=== PATIENT | male | born 1950 | race Caucasian/White ===

== ENCOUNTER 2017-05-08 11:50 | Observation (INO) | payer MEDICARE ==
[2017-05-08] VITALS (9 sets, daily range): BP systolic 126–161; BP diastolic 60–80; PULSE 74–109; RESP 14–22; TEMP 97.3–98.5; O2SAT 95–99
[~2017-05-08] VITALS: Ht 180.3 cm; Wt 56.9 kg
[~2017-05-08 11:50] MED LIST: ASPI81TA82 PO; CARV6.252 PO; CLON.1 PO; IRON27TA PO; LANTUSP SQ; MAGN400C2 PO; MYCO500T PO; NOVOLOGSS SQ; PLAV75TA PO; PROM25SU8 PO; PROT40TA PO; SIMV40TA PO; TAB-TAB PO; TACR1 PO; TORS20TA PO; VITA20003 PO
--- NOTE | 2017-05-08 12:24 | PD ---
HPI Chief Complaint: Diabetic Time Seen by Provider: 12:01 Travel History International Travel<30 days: No Contact w/Intl Traveler<30days: No Traveled to known affect area: No History of Present Illness HPI 67yo M with PMH of CAD s/p CABG, DM, renal transplant presents to the ED after neighbor found him lying down on sidewalk. When Fire arrive, he was combative and glucose was found to be 36. Pt was given D10 and repeat glucose was 130s. Pt became normal after glucose. Pt did vomit after glucose. Pt is now AAOx3 and has abrasion on right forehead, skin tears in bilateral elbows and abrasion in right shoulder/right upper back. Pt complains of some pain on top of his mouth where his denture was as well. Mild pain when the skin tears are. Pt said he felt that his blood sugar was low so he went to eat lunch early. However, he did not manage to do that and does not remember what happen after he tried to eat lunch. Denies any fever, chest pain, sob, n/v, abdominal pain, focal weakness or numbness. PFSH Past Medical History Blood Disorders: No Anxiety: No Depression: No Cancer: Yes (Melanoma) Cardiac Catheterization: Yes Cardiovascular Problems: Yes (CABG, HTN) High Cholesterol: Yes Chest Pain: No Congestive Heart Failure: Yes Cerebrovascular Accident: Yes Coronary Artery Disease: Yes Diabetes: Yes (Type 1) Diminished Hearing: Yes (NAKNEK) Endocrine: Yes Gastrointestinal Disorders: Yes GERD: Yes Glaucoma: No Genitourinary: Yes (bilateral kidney transplant) Hepatitis: No Hiatal Hernia: No Hypertension: Yes Immune Disorder: No Musculoskeletal: No Neurologic: Yes Psychiatric: No Reproductive: No Respiratory: No Integumentary: No Myocardial Infarction: Yes Renal Failure: Yes (H/O) Seizures: Yes Thyroid Disease: No PNEUMOCCOCAL Vaccine (Year): 2010 Past Surgical History Abdominal Surgery: No Cardiac Surgery: Yes (TRIPLE BYpASS IN 2003) Coronary Artery Bypass Graft: Yes (Triple) Ear Surgery: No Endocrine Surgery: No Eye Surgery: No Genitourinary Surgery: Yes (BILATERAL KIDNEY TRANSPLANT IN 2003) Gynecologic Surgery: No Neurologic Surgery: No Oral Surgery: No Pacemaker: No Thoracic Surgery: No Other Surgery: Yes (Kidney tx, toe amputations) Social History Alcohol Use: No Tobacco Use: No (Quit) Substance Use: No Allergies-Medications (Allergen,Severity, Reaction): Coded Allergies: penicillin G (Unverified Allergy, Severe, RASH, 05/08/17) Reported Meds & Prescriptions Reported Meds & Active Scripts Active Reported Torsemide 20 Mg Tab 20 Mg PO BID Tacrolimus 1 Mg Cap 1 Mg PO Q12H Mycophenolate (Mycophenolate Mofetil) 500 Mg Tab 500 Mg PO BID Simvastatin 40 Mg Tab 40 Mg PO HS Protonix (Pantoprazole Sodium) 40 Mg Tab 40 Mg PO DAILY Multi-Vitamin Daily (Multiple Vitamin) 1 Tab Tab 1 Tab PO DAILY Magnesium Oxide 400 Mg Tab 400 Mg PO DAILY Lantus Inj (Insulin Glargine) 1,000 Unit/10 Ml Vial 10 Units SQ HS Humalog Inj (Insulin Human Lispro) 1,000 Unit/10 Ml Vial 1-9 Units SQ ACHS Max dose at bedtime:( )units; sugars< 70,(0)units; sugars 150-199,(1)unit; sugars 200-249,(3)units; sugars 250-299,(5)units; sugars 300-349,(7)units; sugars more than 349,(9)units. Ferrous Gluconate 240 Mg (27 Mg Iron) Tab 240 Mg PO TID Clopidogrel (Clopidogrel Bisulfate) 75 Mg Tab 75 Mg PO DAILY Clonidine (Clonidine HCl) 0.1 Mg Tab 0.1 Mg PO BID Vitamin D3 (Cholecalciferol) 2,000 Unit Cap 2,000 Units PO DAILY Carvedilol 6.25 Mg Tab 6.25 Mg PO BID Aspirin Low Dose (Aspirin) 81 Mg Chew 81 Mg CHEW DAILY Review of Systems Except as stated in HPI: all other systems reviewed are Neg Physical Exam Narrative GENERAL: 67yo M not in distress. SKIN: Focused skin assessment warm/dry. HEAD: +Abrasion right forehead. EYES: Pupils equal and round at 3mm bilaterally. EOMI. ENT: No nasal bleeding or discharge. Mucous membranes pink and moist. NECK: No midline cervical spine ttp. CARDIOVASCULAR: Regular rate and rhythm. No murmur appreciated. RESPIRATORY: No accessory muscle use. Clear to auscultation. Breath sounds equal bilaterally. GASTROINTESTINAL: Abdomen soft, non-tender, nondistended. MUSCULOSKELETAL: Multiple skin tears in bilateral elbows. Abrasion right shoulder and scapula. FROM in all extremities. Sensation intact. Left AV fistula with positive thrill. NEUROLOGICAL: Awake and alert. No obvious cranial nerve deficits. Motor grossly within normal limits. Normal speech. PSYCHIATRIC: Appropriate mood and affect; insight and judgment normal. Data Data Last Documented VS Vital Signs Date Time Temp Pulse Resp B/P (MAP) Pulse Ox O2 Delivery O2 Flow Rate FiO2 05/08/17 16:15 94 20 135/70 (91) 98 05/08/17 14:46 Nasal Cannula 2.00 05/08/17 12:10 98.5 Orders Orders Complete Blood Count With Diff (05/08/17 11:53) Blood Glucose (05/08/17 11:53) Comprehensive Metabolic Panel (05/08/17 11:53) Iv Access Insert/Monitor (05/08/17 11:53) Electrocardiogram (05/08/17 ) Troponin I (05/08/17 12:15) Ct Brain W/O Iv Contrast(Rout) (05/08/17 ) Ct Facial Bones W/O Iv Cont (05/08/17 ) Shoulder, Limited(2vws) (05/08/17 ) Elbow, Limited (Ap&Lat) (05/08/17 ) Elbow, Limited (Ap&Lat) (05/08/17 ) Tetanus/Diphtheria Tox Adult (Tetanus/Di (05/08/17 12:30) Ondansetron Inj (Zofran Inj) (05/08/17 13:15) Diet Full Liquid (05/08/17 Lunch) Blood Glucose (05/08/17 14:09) Chest, Single Ap (05/08/17 ) Electrocardiogram (05/08/17 ) Troponin I (05/08/17 14:56) Aspirin (Aspirin) (05/08/17 15:00) Admit Order (Ed Use Only) (05/08/17 16:29) Labs Laboratory Tests Test 05/08/17 13:30 05/08/17 15:00 White Blood Count 12.7 TH/MM3 Red Blood Count 4.38 MIL/MM3 Hemoglobin 13.0 GM/DL Hematocrit 40.3 % Mean Corpuscular Volume 92.0 FL Mean Corpuscular Hemoglobin 29.7 PG Mean Corpuscular Hemoglobin Concent 32.3 % Red Cell Distribution Width 13.5 % Platelet Count 175 TH/MM3 Mean Platelet Volume 8.5 FL Neutrophils (%) (Auto) 91.3 % Lymphocytes (%) (Auto) 2.9 % Monocytes (%) (Auto) 4.6 % Eosinophils (%) (Auto) 0.8 % Basophils (%) (Auto) 0.4 % Neutrophils # (Auto) 11.5 TH/MM3 Lymphocytes # (Auto) 0.4 TH/MM3 Monocytes # (Auto) 0.6 TH/MM3 Eosinophils # (Auto) 0.1 TH/MM3 Basophils # (Auto) 0.1 TH/MM3 CBC Comment DIFF FINAL Differential Comment Blood Urea Nitrogen 66 MG/DL Creatinine 2.40 MG/DL Random Glucose 143 MG/DL Total Protein 6.8 GM/DL Albumin 3.7 GM/DL Calcium Level 9.6 MG/DL Alkaline Phosphatase 90 U/L Aspartate Amino Transf (AST/SGOT) 27 U/L Alanine Aminotransferase (ALT/SGPT) 19 U/L Total Bilirubin 0.8 MG/DL Sodium Level 141 MEQ/L Potassium Level 4.0 MEQ/L Chloride Level 106 MEQ/L Carbon Dioxide Level 25.7 MEQ/L Anion Gap 9 MEQ/L Estimat Glomerular Filtration Rate 27 ML/MIN Troponin I 0.02 NG/ML 0.03 NG/ML MDM Medical Decision Making Medical Screen Exam Complete: Yes Emergency Medical Condition: Yes Interpretation(s) EKG: NSR 75bpm. LAD. 1st AV block. Q wave V2. EKG#2: NSR 90bpm. 1st AV block. Q wave V2. EKG unchanged from prior. Differential Diagnosis Hypoglycemia vs. ICH vs. fracture vs. dehydration vs. electrolyte abnormality Narrative Course 67yo M with insulin dependent diabetes was found down on sidewalk and found to be hypoglycemic. Mental status improved after D10. Pt is AAOx3 and has abrasions/skin tears as noted. Blood glucose here is 81. Labs reviewed, WBC 12.7. Troponin negative. BUN/creatinine 66/2.40. This is pt's baseline and not really change from prior in 2016. Glucose 143. Xray bilateral elbow negative. CT brain showed no ICH. There is layering blood in right maxillary sinus without visible fracture. CT MF again saw fluid in right maxillary sinus. Also in right sphenoid sinus and in ethmoid air cells. No fracture. Will have pt follow up with craniofacial as outpatient. Pt given zofran for nausea. Pt has been observed in the ED and given food. Blood glucose 202 after food. Pt reevaluated at bedside at 2:50pm and he said that he is starting to have midsternal chest pain now. Pain is nonradiating, midsternal and dull. Said he feels a little sob as well. It is tender to palpation. Although the chest pain may be from the fall, pt has significant cardiac history and did not have chest pain initially. It has been almost 3 hours since his arrival and now started to have chest pain so I will that I will admit him for observation. Repeat EKG and troponin ordered. Second troponin negative at 0.03 as well. CXR showed patchy lower lung zone atelectasis versus mild consolidation. Small left pleural effusion. He does have some cough and mildly elevated WBC. Will cover with azithromycin. Discussed with Dr. Mccarty and accepted to his service. Diagnosis Primary Impression: Chest pain Qualified Codes: R07.9 - Chest pain, unspecified Admitting Information Admitting Physician Requests: Observation Ana María Montiel DO May 08, 2017 12:24
[2017-05-08] MEDS ORDERED: MYCO500T PO (12:30)
[2017-05-08] MEDS ORDERED: TORS20TA PO (12:30)
[2017-05-08] MEDS ORDERED: CLON0.1T PO (12:30)
[2017-05-08] MEDS ORDERED: LANTUS2P SQ (12:30)
[2017-05-08] MEDS ORDERED: TETANUS/DIPHTHERIA TOXOID ADULT 0.5 ML VIAL IM ONE (12:30)
[2017-05-08] MEDS ORDERED: CLOP75TA PO (12:30)
[2017-05-08] MEDS ORDERED: ASPI81CH6 CHEW (12:30)
[2017-05-08] MEDS ORDERED: CARV6.252 PO (12:30)
[2017-05-08] MEDS ORDERED: MULT-65 PO (12:30)
[2017-05-08] MEDS ORDERED: HUMALOG SQ (12:30)
[2017-05-08] MEDS ORDERED: FERR240T PO (12:30)
[2017-05-08] MEDS ORDERED: SIMV40TA PO (12:30)
[2017-05-08] MEDS ORDERED: VITA2000 PO (12:30)
[2017-05-08] MEDS ORDERED: TACR1CAP PO (12:30)
[2017-05-08] MEDS ORDERED: MAGN400T2 PO (12:30)
[2017-05-08] MEDS ORDERED: PROT40TA PO (12:30)
--- NOTE | 2017-05-08 12:53 | RADRPT ---
EXAM DATE/TIME: 05/08/2017 12:34 [facility] COMPARISON: CT BRAIN W/O CONTRAST, May 10, 2015, 19:43. INDICATIONS : Low blood sugar caused patient to fall hitting his head. RADIATION DOSE: 53.88 CTDIvol (mGy) MEDICAL HISTORY : Seizures. Cardiovascular disease Congestive heart failure.HTN,CAD, melanoma, CVA SURGICAL HISTORY : Bilateral kidney transplant ENCOUNTER: Initial ACUITY: 1 day PAIN SCALE: 4/10 LOCATION: Right cranial TECHNIQUE: Multiple contiguous axial images were obtained of the head. Using automated exposure control and adj ustment of the mA and/or kV according to patient size, radiation dose was kept as low as reasonably a chievable to obtain optimal diagnostic quality images. DICOM format image data is available electro nically for review and comparison. FINDINGS: CEREBRUM: The ventricles are normal for age. No evidence of midline shift, mass lesion, hemorrhage or acute in farction. No extra-axial fluid collections are seen. POSTERIOR FOSSA: The cerebellum and brainstem are intact. The 4th ventricle is midline. The cerebellopontine angle i s unremarkable. EXTRACRANIAL: The visualized portion of the orbits is intact. SKULL: There is high density fluid identified in the right maxillary sinus which is new and is consistent wi th blood products. No fracture is visible. CONCLUSION: Layering blood identified within the right maxillary sinus without visible fracture. The remainder of the exam is unremarkable.. Dayami Gonzalez MD on May 08, 2017 at 12:48 Board Certified Radiologist. This report was verified electronically.
--- NOTE | 2017-05-08 13:00 | RADRPT ---
EXAM DATE/TIME: 05/08/2017 12:34 [facility] COMPARISON: No previous studies available for comparison. INDICATIONS : Low blood sugar caused pt to fall, injury to right eyebrow. RADIATION DOSE: 35.47 CTDIvol (mGy) MEDICAL HISTORY : Cardiovascular disease. Seizures. Congestive heart failure.CAD,HTN,Melanoma,CVA SURGICAL HISTORY : Bilateral kidney transplant. ENCOUNTER: Initial ACUITY: 1 day PAIN SCORE: 6/10 LOCATION: Right cranial TECHNIQUE: Volumetric scanning of the facial bones was performed. Using automated exposure control and adjustme nt of the mA and/or kV according to patient size, radiation dose was kept as low as reasonably achiev able to obtain optimal diagnostic quality images. DICOM format image data is available electronicall y for review and comparison. FINDINGS: ORBITS: The orbital and infraorbital osseous structures are intact. The retroconal structures have a normal configuration. No radiopaque foreign bodies are seen. NASAL BONE: The nasal bone and maxillary spine are intact ZYGOMATIC ARCHES: Symmetric without evidence of fracture. SINUSES: There is layering fluid identified within the right maxillary sinus, fluid identified within the ethm oid air cells. The frontal sinuses and sphenoid sinuses are largely clear. There is a small air-fluid level identified in the right sphenoid sinus. NASAL CAVITY: The nasal septum is intact and midline. The lacrimal ducts are intact. SOFT TISSUES: No radiopaque foreign bodies seen. No soft-tissue swelling is seen. INTRACRANIAL: No intracranial air seen. CRIBIFORM PLATE: Grossly intact. CONCLUSION: Fluid identified within the right maxillary sinus, right sphenoid sinus and within the ethmoid air ce lls. No fracture is visualized.. Dayami Gonzalez MD on May 08, 2017 at 12:55 Board Certified Radiologist. This report was verified electronically.
[2017-05-08] MEDS ORDERED: ONDANSETRON HCL 4 MG/2 ML VIAL IV PUSH ONE (13:15)
--- NOTE | 2017-05-08 13:15 | RADRPT ---
EXAM DATE/TIME: 05/08/2017 12:55 [facility] COMPARISON: No previous studies available for comparison. INDICATIONS : Fell, left elbow pain, multiple skin tears and abrasions MEDICAL HISTORY : Cardiovascular disease. SURGICAL HISTORY : CABG. ENCOUNTER: Initial ACUITY: 1 day PAIN SCORE: 1/10 LOCATION: Left elbow FINDINGS: 2 views left elbow. Bone alignment within normal limits. No evidence of fracture. Cannot accurately evaluate for joint effusion due to obliquity of lateral view. CONCLUSION: No gross evidence of fracture. Gonzalo Solano MD on May 08, 2017 at 13:11 Board Certified Radiologist. This report was verified electronically.
--- NOTE | 2017-05-08 13:17 | RADRPT ---
EXAM DATE/TIME: 05/08/2017 12:53 [facility] COMPARISON: ELBOW LEFT LIMITED (AP & LAT), May 08, 2017, 12:55. INDICATIONS : Fell, pain and multiple skin tears and abrasions MEDICAL HISTORY : Cardiovascular disease. SURGICAL HISTORY : CABG. ENCOUNTER: Initial ACUITY: 1 day PAIN SCORE: 1/10 LOCATION: Right elbow FINDINGS: 2 views of the right elbow. Bone alignment within normal limits. No evidence of fracture. Cannot acc urately evaluate for joint effusion. CONCLUSION: No gross evidence of fracture. Gonzalo Solano MD on May 08, 2017 at 13:13 Board Certified Radiologist. This report was verified electronically.
--- NOTE | 2017-05-08 13:18 | RADRPT ---
EXAM DATE/TIME: 05/08/2017 12:46 [facility] COMPARISON: No previous studies available for comparison. INDICATIONS : Fell, right shoulder pain, multiple abrasions MEDICAL HISTORY : Cardiovascular disease. SURGICAL HISTORY : CABG. ENCOUNTER: Initial ACUITY: 1 day PAIN SCORE: 10 LOCATION: Right Shoulder FINDINGS: 2 views right shoulder. Bone alignment within normal limits. Age-indeterminate sixth and seventh post erior rib fractures on the right. No other evidence of fracture. Glenohumeral joint within normal gage its. Minimal acromioclavicular joint hypertrophy. CONCLUSION: Age-indeterminate sixth and seventh right rib fractures. No other evidence of fracture. Gonzalo Solano MD on May 08, 2017 at 13:14 Board Certified Radiologist. This report was verified electronically.
[2017-05-08 13:42] LABS: AUTOMATED NEUTROPHIL # 11.5 TH/MM3 (1.8-7.7); BASOPHIL # 0.1 TH/MM3 (0-0.2); BASOPHIL % 0.4 % (0.0-2.0); EOSINOPHIL # 0.1 TH/MM3 (0-0.4); EOSINOPHIL % 0.8 % (0.0-4.0); HEMATOCRIT 40.3 % (39.0-51.0); LYMPH % 2.9 % (9.0-44.0); LYMPHOCYTE # 0.4 TH/MM3 (1.0-4.8); MEAN CORPUSCULAR HEMOGLOBIN 29.7 PG (27.0-34.0); MEAN CORPUSCULAR HGB CONC 32.3 % (32.0-36.0); MEAN PLATELET VOLUME 8.5 FL (7.0-11.0); MONO % 4.6 % (0.0-8.0); MONOCYTE # 0.6 TH/MM3 (0-0.9); NEUT % 91.3 % (16.0-70.0); PLATELET COUNT 175 TH/MM3 (150-450); RED BLOOD COUNT 4.38 MIL/MM3 (4.50-5.90); RED CELL DISTRIBUTION WIDTH 13.5 % (11.6-17.2); WHITE BLOOD COUNT 12.7 TH/MM3 (4.0-11.0)
[2017-05-08 13:52] LABS: CHLORIDE 106 MEQ/L (98-107); SODIUM (NA) 141 MEQ/L (136-145)
[2017-05-08 13:55] LABS: CALCIUM 9.6 MG/DL (8.5-10.1)
[2017-05-08 13:56] LABS: ALBUMIN 3.7 GM/DL (3.4-5.0); BICARBONATE 25.7 MEQ/L (21.0-32.0); BLOOD UREA NITROGEN 66 MG/DL (7-18); GLUCOSE,RANDOM 143 MG/DL (74-106)
[2017-05-08 13:59] LABS: ALT (GPT) 19 U/L (12-78); AST (GOT) 27 U/L (15-37); GLOMERULAR FILTRATION RATE 27 ML/MIN (>89)
[2017-05-08 14:00] LABS: TOTAL BILIRUBIN ADULT 0.8 MG/DL (0.2-1.0); TOTAL PROTEIN 6.8 GM/DL (6.4-8.2)
[2017-05-08 14:02] LABS: ALKALINE PHOSPHATASE 90 U/L (45-117)
[2017-05-08] MEDS ORDERED: ASPIRIN 325 MG TAB PO ONE (15:00)
--- NOTE | 2017-05-08 16:16 | RADRPT ---
EXAM DATE/TIME: 05/08/2017 15:30 [facility] COMPARISON: CHEST SINGLE AP, May 10, 2015, 19:52. INDICATIONS : Low blood pressure, pain post fall. MEDICAL HISTORY : Hypercholesterolemia. Hypertension Myocardial infarction. Coronary artery disease, congestive hea rt failure, SURGICAL HISTORY : CABG. Cardiac cath, Triple bypass. ENCOUNTER: Initial ACUITY: 1 day PAIN SCORE: 4/10 LOCATION: Bilateral chest FINDINGS: Single AP view of the chest. Patchy left lower lung zone consolidation/atelectasis. Mild blunting lef t costophrenic sulcus. Scarring left lung apex. Median sternotomy wires. Cardiomediastinal silhouette within normal limits. No evidence of pneumothorax. CONCLUSION: 1. Patchy left lower lung zone atelectasis versus mild consolidation. 2. Blunting left costophrenic sulcus indicating small left pleural effusion. Gonzalo Solano MD on May 08, 2017 at 16:12 Board Certified Radiologist. This report was verified electronically.
[2017-05-08] MEDS ORDERED: AZITHROMYCIN 250 MG TAB PO ONE (17:00)
[2017-05-08] MEDS ORDERED: ONDANSETRON HCL 4 MG/2 ML VIAL IV PUSH PRN (17:30)
[2017-05-08] MEDS ORDERED: DEXTROSE 50% IN WATER 50 ML VIAL(D50) IV PUSH PRN (17:30)
[2017-05-08] MEDS ORDERED: SODIUM CHLORIDE 0.9% FLUSH 10 ML FLUSH IV FLUSH PRN (17:30)
[2017-05-08] MEDS ORDERED: GLUCAGON 1 MG/ML VIAL OTHER PRN (17:30)
[2017-05-08] MEDS ORDERED: ACETAMINOPHEN 500 MG CPLT PO PRN (17:30)
[2017-05-08] MEDS ORDERED: PILL SPLITTER OTHER PRN (18:00)
[2017-05-08] MEDS: TORSEMIDE 20 MG TAB PO SCH (18:43)
[2017-05-08] MEDS: FERROUS SULFATE 325 MG (65 MG ELEMENTAL IRON) TAB PO SCH (18:44)
--- NOTE | 2017-05-08 18:56 | HHI.HP ---
[facility] Omar Simon MD Admission Diagnosis Chest pain Diagnoses: (1) Hypoglycemia (2) Chest pain Chief Complaint: Status post hypoglycemia Chest pain Travel History International Travel<30 Days: No Contact w/Intl Traveler <30 Da: No Traveled to Known Affected Are: No History of Present Illness This is a pleasant 67-year-old male patient with a known medical history of CAD with CABG, hypertension, hyperlipidemia, type 1 diabetes and chronic renal failure presented to the ED post hypoglycemic episode. Patient seen in room, completely alert and oriented 3. He states that this morning he checked his blood sugar and it was 79, therefore he decided to eat his lunch. After this time he does not remember any occurrence except waking up in the ED. Per records, states that patient was found lying down on the sidewalk, combative and his blood sugar at that time was 36. Patient was given D10 and brought into the emergency room. Patient presented with multiple abrasions and skin tears. Patient does have a history of type 1 diabetes and has been managing it since his 20s. Patient sees his PCP regularly and reports his hemoglobin A1c within normal limits. Patient denies any recent illness including fever, chills , shortness of breath, abdominal pain, nausea, vomiting, diarrhea, dysuria. Patient does follow with Dr. English, and underwent a nuclear stress test last year in September. Review of Systems Constitutional: DENIES: Fever, Chills Eyes: DENIES: Blurred vision, Diplopia Respiratory: DENIES: Cough, Shortness of breath Cardiovascular: COMPLAINS OF: Chest pain, DENIES: Palpitations Gastrointestinal: DENIES: Abdominal pain, Black stools, Bloody stools, Constipation, Diarrhea, Nausea, Vomiting Immunologic/allergic: DENIES: Eczema Neurologic: DENIES: Abnormal gait Psychiatric: DENIES: Anxiety Except as stated in HPI: all other systems reviewed are Neg Past Family Social History Past Medical History CAD status post CABG Type 1 diabetes Bilateral kidney transplant with chronic kidney disease Hypertension Hyperlipidemia History of melanoma skin cancer GERD Past Surgical History Triple bypass in 2003 Bilateral kidney transplant in 2003 Toe amputations Reported Medications Active Reported Torsemide 20 Mg Tab 20 Mg PO BID Tacrolimus 1 Mg Cap 1 Mg PO Q12H Mycophenolate (Mycophenolate Mofetil) 500 Mg Tab 500 Mg PO BID Simvastatin 40 Mg Tab 40 Mg PO HS Protonix (Pantoprazole Sodium) 40 Mg Tab 40 Mg PO DAILY Multi-Vitamin Daily (Multiple Vitamin) 1 Tab Tab 1 Tab PO DAILY Magnesium Oxide 400 Mg Tab 400 Mg PO DAILY Lantus Inj (Insulin Glargine) 1,000 Unit/10 Ml Vial 10 Units SQ HS Humalog Inj (Insulin Human Lispro) 1,000 Unit/10 Ml Vial 1-9 Units SQ ACHS Max dose at bedtime:( )units; sugars< 70,(0)units; sugars 150-199,(1)unit; sugars 200-249,(3)units; sugars 250-299,(5)units; sugars 300-349,(7)units; sugars more than 349,(9)units. Ferrous Gluconate 240 Mg (27 Mg Iron) Tab 240 Mg PO TID Clopidogrel (Clopidogrel Bisulfate) 75 Mg Tab 75 Mg PO DAILY Clonidine (Clonidine HCl) 0.1 Mg Tab 0.1 Mg PO BID Vitamin D3 (Cholecalciferol) 2,000 Unit Cap 2,000 Units PO DAILY Carvedilol 6.25 Mg Tab 6.25 Mg PO BID Aspirin Low Dose (Aspirin) 81 Mg Chew 81 Mg CHEW DAILY Allergies: Coded Allergies: penicillin G (Unverified Allergy, Severe, RASH, 05/08/17) *MDRO Multi-Drug Resistant Organism (Verified Allergy, Unknown, 05/08/17) MRSA Active Ordered Medications Current Medications Medications (Trade) Dose Ordered Sig/Evon Route Start Time Stop Time Status Last Admin (NS Flush) 2 ml UNSCH PRN IV FLUSH 05/08/17 17:30 (NS Flush) 2 ml BID IV FLUSH 05/08/17 21:00 (Tylenol) 500 mg Q4H PRN PO 05/08/17 17:30 (Zofran Inj) 4 mg Q6H PRN IV PUSH 05/08/17 17:30 (D50w (Vial) Inj) 50 ml UNSCH PRN IV PUSH 05/08/17 17:30 (Glucagon Inj) 1 mg UNSCH PRN OTHER 05/08/17 17:30 (NovoLOG SUPPLEMENTAL SCALE) 1 ACHS SLIDING SCALE SQ 05/08/17 21:00 (Coreg) 6.25 mg BID PO 05/08/17 21:00 (Vitamin D3) 2,000 units DAILY PO 05/09/17 09:00 (Catapres) 0.1 mg BID PO 05/08/17 21:00 (Levemir Inj) 10 units HS SQ 05/08/17 21:00 (Mag-Ox) 400 mg DAILY PO 05/09/17 09:00 (Cellcept) 500 mg BID PO 05/08/17 21:00 (Protonix) 40 mg DAILY PO 05/09/17 09:00 (Prograf) 1 mg Q12HR PO 05/08/17 21:00 (Demadex) 20 mg DAILY@0900,1800 PO 05/08/17 18:00 (Ferrous Sulfate) 162.5 mg TID PO 05/08/17 18:00 (Theragran) 1 tab DAILY PO 05/09/17 09:00 (Pravachol) 80 mg HS PO 05/08/17 21:00 (Pill Splitter) 1 ea UNSCH PRN OTHER 05/08/17 18:00 Family History Maternal medical history significant for PR at the age of 67 Paternal medical history significant for brain cancer. Social History Patient denies any current tobacco use, states he quit smoking fifteen years ago. Denies any alcohol or illicit drug use. Physical Exam Vital Signs Vital Signs Date Time Temp Pulse Resp B/P (MAP) Pulse Ox O2 Delivery O2 Flow Rate FiO2 05/08/17 18:04 97.7 103 18 150/73 (98) 97 05/08/17 18:02 97.7 103 18 150/73 (98) 97 05/08/17 17:15 05/08/17 16:15 94 20 135/70 (91) 98 05/08/17 14:46 Nasal Cannula 2.00 05/08/17 14:45 90 16 99 Nasal Cannula 2.00 05/08/17 14:45 90 16 126/60 (82) 99 Nasal Cannula 2.00 05/08/17 13:35 85 14 136/61 (86) 97 Room Air 05/08/17 12:10 98.5 74 16 153/67 (95) 96 Physical Exam GENERAL: well-developed thin elderly male patient in NAD. SKIN: Warm and dry. No rash. Left wrist AV fistula, bruit and thrill present. Topical abrasions on forehead upper extremities and lower extremities. HEAD: Normocephalic. Atraumatic. EYES: Pupils equal and round. No scleral icterus. No injection or drainage. ENT: No nasal bleeding or discharge. Mucous membranes pink and moist. NECK: Supple. Trachea midline. CARDIOVASCULAR: Regular rate and rhythm. S1, S2 noted. No murmur appreciated. No reproducible chest pain to palpation. RESPIRATORY: No accessory muscle use. Clear to auscultation. Breath sounds equal bilaterally. GASTROINTESTINAL: Abdomen soft, non-tender, nondistended. Normoactive bowel sounds x4. MUSCULOSKELETAL: No obvious deformities. Extremities without clubbing, cyanosis , or edema. NEUROLOGICAL: Awake and alert. No obvious cranial nerve deficits. Motor grossly within normal limits. 5/5 muscle strength in bilateral upper and lower extremities. Normal speech. PSYCHIATRIC: Appropriate mood and affect; insight and judgment normal. Laboratory Laboratory Tests Test 05/08/17 13:30 05/08/17 15:00 05/08/17 18:23 White Blood Count 12.7 Red Blood Count 4.38 Hemoglobin 13.0 Hematocrit 40.3 Mean Corpuscular Volume 92.0 Mean Corpuscular Hemoglobin 29.7 Mean Corpuscular Hemoglobin Concent 32.3 Red Cell Distribution Width 13.5 Platelet Count 175 Mean Platelet Volume 8.5 Neutrophils (%) (Auto) 91.3 Lymphocytes (%) (Auto) 2.9 Monocytes (%) (Auto) 4.6 Eosinophils (%) (Auto) 0.8 Basophils (%) (Auto) 0.4 Neutrophils # (Auto) 11.5 Lymphocytes # (Auto) 0.4 Monocytes # (Auto) 0.6 Eosinophils # (Auto) 0.1 Basophils # (Auto) 0.1 CBC Comment DIFF FINAL Differential Comment Blood Urea Nitrogen 66 Creatinine 2.40 Random Glucose 143 Total Protein 6.8 Albumin 3.7 Calcium Level 9.6 Alkaline Phosphatase 90 Aspartate Amino Transf (AST/SGOT) 27 Alanine Aminotransferase (ALT/SGPT) 19 Total Bilirubin 0.8 Sodium Level 141 Potassium Level 4.0 Chloride Level 106 Carbon Dioxide Level 25.7 Anion Gap 9 Estimat Glomerular Filtration Rate 27 Troponin I 0.02 0.03 Result Diagram: 05/08/17 1330 05/08/17 1330 Imaging Last Impressions Shoulder X-Ray 05/08/17 0000 Signed Impressions: Service Date/Time: Monday, May 08, 2017 12:46 - CONCLUSION: Age-indeterminate sixth and seventh right rib fractures. No other evidence of fracture. Gonzalo Solano MD Maxillofacial CT 05/08/17 0000 Signed Impressions: Service Date/Time: Monday, May 08, 2017 12:34 - CONCLUSION: Fluid identified within the right maxillary sinus, right sphenoid sinus and within the ethmoid air cells. No fracture is visualized.. Dayami Gonzalez MD Head CT 05/08/17 0000 Signed Impressions: Service Date/Time: Monday, May 08, 2017 12:34 - CONCLUSION: Layering blood identified within the right maxillary sinus without visible fracture. The remainder of the exam is unremarkable.. Dayami Gonzalez MD Elbow X-Ray 05/08/17 0000 Signed Impressions: Service Date/Time: Monday, May 08, 2017 12:55 - CONCLUSION: No gross evidence of fracture. Gonzalo Solano MD Chest X-Ray 05/08/17 0000 Signed Impressions: Service Date/Time: Monday, May 08, 2017 15:30 - CONCLUSION: 1. Patchy left lower lung zone atelectasis versus mild consolidation. 2. Blunting left costophrenic sulcus indicating small left pleural effusion. Gonzalo Solano MD Septic Shock Reassessment Septic shock perfusion: reassessment completed Caprini VTE Risk Assessment Caprini VTE Risk Assessment: Mod/High Risk (score >= 2) Caprini Risk Assessment Model Point Value = 1 Point Value = 2 Point Value = 3 Point Value = 5 Age 41-60 Minor surgery BMI > 25 kg/m2 Swollen legs Varicose veins or History of unexplained or recurrent spontaneous Oral contraceptives or hormone replacement Sepsis (< 1 month) Serious lung disease, including pneumonia (< 1 month) Abnormal pulmonary function Acute myocardial infarction Congestive heart failure (< 1 month) History of inflammatory bowel disease Medical patient at bed rest Age 61-74 Arthroscopic surgery Major open surgery (> 45 min) Laparoscopic surgery (> 45 min) Malignancy Confined to bed (> 72 hours) Immobilizing plaster cast Central venous access Age >= 75 History of VTE Family history of VTE Factor V Leiden Prothrombin [id number] Lupus anticoagulant Anticardiolipin antibodies Elevated serum homocysteine Heparin-induced thrombocytopenia Other congenital or acquired thrombophilia Stroke (< 1 month) Elective arthroplasty Hip, pelvis, or leg fracture Acute spinal cord injury (< 1 month) Prophylaxis Regimen Total Risk Factor Score Risk Level Prophylaxis Regimen 0-1 Low Early ambulation 2 Moderate Order ONE of the following: *Sequential Compression Device (SCD) *Heparin 5000 units SQ BID 3-4 Higher Order ONE of the following medications: *Heparin 5000 units SQ TID *Enoxaparin/Lovenox 40 mg SQ daily (WT < 150 kg, CrCl > 30 mL/min) *Enoxaparin/Lovenox 30 mg SQ daily (WT < 150 kg, CrCl > 10-29 mL/min) *Enoxaparin/Lovenox 30 mg SQ BID (WT < 150 kg, CrCl > 30 mL/min) AND/OR *Sequential Compression Device (SCD) 5 or more Highest Order ONE of the following medications: *Heparin 5000 units SQ TID (Preferred with Epidurals) *Enoxaparin/Lovenox 40 mg SQ daily (WT < 150 kg, CrCl > 30 mL/min) *Enoxaparin/Lovenox 30 mg SQ daily (WT < 150 kg, CrCl > 10-29 mL/min) *Enoxaparin/Lovenox 30 mg SQ BID (WT < 150 kg, CrCl > 30 mL/min) AND *Sequential Compression Device (SCD) Assessment and Plan Problem List: (1) Hypoglycemia ICD Code: E16.2 - Hypoglycemia Status: Acute Plan: Patient is status post hypoglycemic episode, lowest blood sugar was 36. Random glucose on blood work 143. Patient has known type 1 diabetes. Patient placed on Accu-Cheks before meals and at bedtime, sliding scale, cover as needed. Hypoglycemia protocol. Will hold long-acting insulin for now, monitor blood sugar trends closely. Diabetic diet (2) Chest pain ICD Code: R07.9 - Chest pain, unspecified Status: Acute Plan: Tissue has been admitted to the chest pain center for observation. Serial EKGs and serial troponins have been ordered for ruling out ACS purposes. Initial two troponins flat. Follow trend. EKG reviewed showing sinus tachycardia with no ST changes to indicate ischemia. Chest pain has now completely resolved. Was given aspirin in the ED. CBC reviewed showing mild leukocytosis with left shift. BMP reviewed showing chronic renal failure and stable random glucose. Patient follows with Dr. English, cardiology, and underwent a stress test last year. Will most likely rule out ACS and discharge to follow-up with cardiology in the outpatient setting. Continue cardiac telemetry, rule out and monitor for any arrhythmias. Patient is stable at this time and agreeable to the plan. (3) Hypertension ICD Code: I10 - Hypertension Status: Chronic Plan: Continue home medications. Monitor BP trends. (4) Hyperlipidemia ICD Code: E78.5 - Hyperlipidemia Status: Chronic Plan: Continue home statin. (5) CKD (chronic kidney disease), stage III ICD Code: N18.3 - CKD (chronic kidney disease), stage III Status: Acute Plan: Able at this time. Creatinine 2.2 on presentation. This is patient's baseline. Follows with Dr. Martins the outpatient setting. Left wrist AV fistula present, bruit and thrill noted. Supportive care. Prophylaxis: SCDs. Problem Qualifiers (1) Chest pain: Qualified Codes: R07.9 - Chest pain, unspecified Caridad Tavera May 08, 2017 18:56
[2017-05-08 19:04] LABS: TROPONIN I 0.04 NG/ML (0.02-0.05)
[2017-05-08] MEDS ORDERED: INSULIN DETEMIR 100 UNITS/ML VIAL SQ SCH (21:00)
[2017-05-08] MEDS: TACROLIMUS 1 MG CAP PO SCH (21:59)
[2017-05-08] MEDS: CARVEDILOL 6.25 MG TAB PO SCH (21:59)
[2017-05-08] MEDS: MYCOPHENOLATE MOFETIL 500 MG TAB PO SCH (21:59)
[2017-05-08] MEDS: PRAVASTATIN SOD 80 MG TAB PO SCH (21:59)
[2017-05-08] MEDS: cloNIDine HCL 0.1 MG TAB PO SCH (21:59)
[2017-05-08] MEDS: INSULIN ASPART SUPPLEMENTAL SCALE SQ SCH (22:00)
[2017-05-08] MEDS: SODIUM CHLORIDE 0.9% FLUSH 10 ML FLUSH IV FLUSH SCH (22:00)
[2017-05-08 22:21] LABS: TROPONIN I 0.04 NG/ML (0.02-0.05)
[2017-05-09] VITALS (9 sets, daily range): BP systolic 100–145; BP diastolic 48–74; PULSE 74–107; RESP 16–20; TEMP 96.8–97.7; O2SAT 95–98
[2017-05-09 08:37] LABS: AUTOMATED NEUTROPHIL # 8.7 TH/MM3 (1.8-7.7); BASOPHIL # 0.1 TH/MM3 (0-0.2); BASOPHIL % 0.5 % (0.0-2.0); EOSINOPHIL # 0.1 TH/MM3 (0-0.4); EOSINOPHIL % 0.5 % (0.0-4.0); HEMATOCRIT 41.3 % (39.0-51.0); HEMOGLOBIN 13.1 GM/DL (13.0-17.0); LYMPH % 7.6 % (9.0-44.0); LYMPHOCYTE # 0.8 TH/MM3 (1.0-4.8); MEAN CELL VOLUME 92.2 FL (80.0-100.0); MEAN CORPUSCULAR HEMOGLOBIN 29.3 PG (27.0-34.0); MEAN CORPUSCULAR HGB CONC 31.8 % (32.0-36.0); MEAN PLATELET VOLUME 9.1 FL (7.0-11.0); MONO % 9.5 % (0.0-8.0); NEUT % 81.9 % (16.0-70.0); PLATELET COUNT 170 TH/MM3 (150-450); RED BLOOD COUNT 4.48 MIL/MM3 (4.50-5.90); RED CELL DISTRIBUTION WIDTH 13.6 % (11.6-17.2); WHITE BLOOD COUNT 10.7 TH/MM3 (4.0-11.0)
[2017-05-09] MEDS: CARVEDILOL 6.25 MG TAB PO SCH ×2 (08:53→20:56)
[2017-05-09] MEDS: INSULIN ASPART SUPPLEMENTAL SCALE SQ SCH ×4 (08:53→20:57)
[2017-05-09] MEDS: MULTIVITAMIN TAB PO SCH (08:53)
[2017-05-09] MEDS: MAGNESIUM OXIDE 400 MG TAB PO SCH (08:54)
[2017-05-09] MEDS: FERROUS SULFATE 325 MG (65 MG ELEMENTAL IRON) TAB PO SCH ×3 (08:54→18:14)
[2017-05-09] MEDS: CHOLECALCIFEROL (VIT D3) 1000 UNIT TAB PO SCH (08:54)
[2017-05-09 08:55] LABS: BICARBONATE 27.1 MEQ/L (21.0-32.0); CALCIUM 9.6 MG/DL (8.5-10.1); CREATININE 3.2 MG/DL (0.60-1.30)
[2017-05-09] MEDS: PANTOPRAZOLE SOD 40 MG DELAYED RELEASE TAB PO SCH (08:55)
[2017-05-09] MEDS: cloNIDine HCL 0.1 MG TAB PO SCH ×2 (08:55→20:55)
[2017-05-09] MEDS: SODIUM CHLORIDE 0.9% FLUSH 10 ML FLUSH IV FLUSH SCH ×2 (08:55→20:54)
[2017-05-09] MEDS: MYCOPHENOLATE MOFETIL 500 MG TAB PO SCH ×2 (09:58→20:56)
[2017-05-09] MEDS: TACROLIMUS 1 MG CAP PO SCH ×2 (09:58→20:56)
[2017-05-09] MEDS: TORSEMIDE 20 MG TAB PO SCH ×2 (09:59→18:13)
--- NOTE | 2017-05-09 11:53 | HHI.PR ---
Subjective Remarks Follow-up symptomatic hypoglycemia/chest contusion 05/09/17-patient seen and examined, reports improvement of chest pain. Blood glucose improved since admission. patient states he does have a h/o DM for which he is currently taking Insulin, however on the day of admission patient states he took the require unit for Blood glucose of 79 despite the fact that he ate 1/2 of what he cooked. Objective Vitals Vital Signs Date Time Temp Pulse Resp B/P (MAP) Pulse Ox O2 Delivery O2 Flow Rate FiO2 05/09/17 09:00 97.6 76 18 106/57 (73) 95 05/09/17 04:00 96.8 90 16 127/58 (81) 98 05/09/17 00:00 97.5 107 20 100/48 (65) 97 05/08/17 23:00 102 05/08/17 21:09 95 21 05/08/17 20:00 97.3 109 22 161/80 (107) 98 05/08/17 18:04 97.7 103 18 150/73 (98) 97 05/08/17 18:02 97.7 103 18 150/73 (98) 97 05/08/17 17:15 05/08/17 16:15 94 20 135/70 (91) 98 05/08/17 14:46 Nasal Cannula 2.00 05/08/17 14:45 90 16 99 Nasal Cannula 2.00 05/08/17 14:45 90 16 126/60 (82) 99 Nasal Cannula 2.00 05/08/17 13:35 85 14 136/61 (86) 97 Room Air 05/08/17 12:10 98.5 74 16 153/67 (95) 96 I/O 05/08/17 05/08/17 05/08/17 05/09/17 05/09/17 05/09/17 07:00 15:00 23:00 07:00 15:00 23:00 Intake Total 480 ml 220 ml Output Total 250 ml Balance 480 ml -30 ml Intake Oral 480 ml 220 ml Output Urine Total 250 ml # Voids 1 # Bowel Movements 0 0 Result Diagram: 05/09/17 0814 05/09/17 0814 Imaging Last Impressions Shoulder X-Ray 05/08/17 0000 Signed Impressions: Service Date/Time: Monday, May 08, 2017 12:46 - CONCLUSION: Age-indeterminate sixth and seventh right rib fractures. No other evidence of fracture. Gonzalo Solano MD Maxillofacial CT 05/08/17 0000 Signed Impressions: Service Date/Time: Monday, May 08, 2017 12:34 - CONCLUSION: Fluid identified within the right maxillary sinus, right sphenoid sinus and within the ethmoid air cells. No fracture is visualized.. Dayami Gonzalez MD Head CT 05/08/17 0000 Signed Impressions: Service Date/Time: Monday, May 08, 2017 12:34 - CONCLUSION: Layering blood identified within the right maxillary sinus without visible fracture. The remainder of the exam is unremarkable.. Dayami Gonzalez MD Elbow X-Ray 05/08/17 0000 Signed Impressions: Service Date/Time: Monday, May 08, 2017 12:55 - CONCLUSION: No gross evidence of fracture. Gonzalo Solano MD Chest X-Ray 05/08/17 0000 Signed Impressions: Service Date/Time: Monday, May 08, 2017 15:30 - CONCLUSION: 1. Patchy left lower lung zone atelectasis versus mild consolidation. 2. Blunting left costophrenic sulcus indicating small left pleural effusion. Gonzalo Solano MD Objective Remarks GENERAL: NAD SKIN: multiple skin lacerations to Upper extremities, right side of patient's face HEAD: Normocephalic. EYES: No scleral icterus. No injection or drainage. NECK: Supple, trachea midline. No JVD or lymphadenopathy. CARDIOVASCULAR: Regular rate and rhythm without murmurs, gallops, or rubs. RESPIRATORY: Breath sounds equal bilaterally. No accessory muscle use. GASTROINTESTINAL: Abdomen soft, non-tender, nondistended. MUSCULOSKELETAL: No cyanosis, or edema. Dressing over LUE BACK: Nontender without obvious deformity. No CVA tenderness. A/P Problem List: (1) Hypoglycemia ICD Code: E16.2 - Hypoglycemia Status: Resolved (2) Chest pain ICD Code: R07.9 - Chest pain, unspecified Status: Resolved (3) Hypertension ICD Code: I10 - Hypertension Status: Chronic (4) Hyperlipidemia ICD Code: E78.5 - Hyperlipidemia Status: Chronic (5) CKD (chronic kidney disease), stage III ICD Code: N18.3 - CKD (chronic kidney disease), stage III Status: Acute (6) H/O kidney transplant ICD Code: Z94.0 - H/O kidney transplant Status: Chronic Assessment and Plan 67-year-old man with Symptomatic hypoglycemia Resolved per treatment per Hypoglycemia protocol H/o DM type 2 Continue with outpatient therapy including Basal insulin as well as ISS Atypical chest pain 2/2 chest contusion d/t fall ACS ruled out per protocol with serial cardiac enzymes and EKG Now resolved Mechanical fall All imaging studies reviewed without any evidence of Fracture PT to treat and eval Fall precaution Other chronic medical conditions including Hypertension/CAD Continue with outpatient medications H/o Renal Transplant Currently on Prograf and Cellcept, however secondary to worsening Bun/Cr will consult Nephrology-Transplant for further evaluation Monitor Renal function Multiple skin lacerations Treatment with Bacitracin ointment Chronic Right Lower extremity wound Outpatient follow up with Podiatry CAP CXR with evidence of PNA s/p Azithromycin 500mg PO x 1 in Ed, will treat with Azithromycin 250mg PO daily x 4 days Problem Qualifiers (1) Chest pain: Qualified Codes: R07.9 - Chest pain, unspecified Prashanth Faye MD May 09, 2017 11:53
--- NOTE | 2017-05-09 12:11 | EKG ---
Date Performed: 05/08/2017 Time Performed: 12:26:15 PTAGE: 67 years EKG: Sinus rhythm WITH SINUS ARRHYTHMIA WITH FIRST DEGREE AV BLOCK SEPTAL MYOCARDIAL INFARCTION, AGE UNDETERMINED Sinc e the prior tracing, there has been no significant change ABNORMAL ECG PREVIOUS TRACING : 05/10/2015 20.10 DOCTOR: Marcus Thompson Interpretating Date/Time 05/09/2017 12:08:27
--- NOTE | 2017-05-09 12:12 | EKG ---
Date Performed: 05/08/2017 Time Performed: 21:37:05 PTAGE: 67 years EKG: ECTOPIC ATRIAL TACHYCARDIA SEPTAL MYOCARDIAL INFARCTION, AGE UNDETERMINED Since the prior t racing, there has been no significant change ABNORMAL ECG PREVIOUS TRACING : 05/08/2017 18.29 DOCTOR: Marcus Thompson Interpretating Date/Time 05/09/2017 12:09:56
--- NOTE | 2017-05-09 12:17 | EKG ---
Date Performed: 05/08/2017 Time Performed: 14:55:52 PTAGE: 67 years EKG: Sinus rhythm WITH FIRST DEGREE AV BLOCK POSSIBLE SEPTAL MYOCARDIAL INFARCTION ABNORMAL ECG PREVIOUS TRACING : 05/08/2017 12.26 Since the prior tracing, there has been no significant escalona DOCTOR: Marcus Thompson Interpretating Date/Time 05/09/2017 12:15:36
--- NOTE | 2017-05-09 12:28 | EKG ---
Date Performed: 05/08/2017 Time Performed: 18:29:28 PTAGE: 67 years EKG: SINUS TACHYCARDIA WITH FIRST DEGREE AV BLOCK SEPTAL MYOCARDIAL INFARCTION ABNORMAL ECG PREVIOUS TRACING : 05/08/2017 14.55 Since the prior tracing, there has been no significant escalona DOCTOR: Marcus Thompson Interpretating Date/Time 05/09/2017 12:25:24
[2017-05-09] MEDS: AZITHROMYCIN 250 MG TAB PO SCH (13:38)
[2017-05-09] MEDS: BACITRACIN TOP OINT 15 GM TUBE TOPICAL SCH ×2 (15:12→20:57)
[2017-05-09] MEDS: PRAVASTATIN SOD 80 MG TAB PO SCH (20:56)
[2017-05-09] MEDS ORDERED: INSULIN DETEMIR 100 UNITS/ML VIAL SQ SCH (21:00)
[2017-05-10] VITALS: BP 113/60; PULSE 81; RESP 18; TEMP 96.3; O2SAT 98
[2017-05-10 06:35] LABS: CALCIUM 9.7 MG/DL (8.5-10.1)
[2017-05-10 06:36] LABS: BICARBONATE 28.2 MEQ/L (21.0-32.0)
[2017-05-10 06:43] LABS: CREATININE 3.1 MG/DL (0.60-1.30)
[2017-05-10 08:00] VITALS: BP 111/52; PULSE 89; RESP 18; TEMP 96.6; O2SAT 94
[2017-05-10 08:32] VITALS: O2SAT 95
[2017-05-10] MEDS: AZITHROMYCIN 250 MG TAB PO SCH (08:48)
[2017-05-10] MEDS: MYCOPHENOLATE MOFETIL 500 MG TAB PO SCH ×2 (08:48→21:38)
[2017-05-10] MEDS: INSULIN ASPART SUPPLEMENTAL SCALE SQ SCH ×4 (08:48→21:39)
[2017-05-10] MEDS: ASPIRIN 81 MG CHEW TAB CHEW SCH (08:48)
[2017-05-10] MEDS: MAGNESIUM OXIDE 400 MG TAB PO SCH (08:49)
[2017-05-10] MEDS: CHOLECALCIFEROL (VIT D3) 1000 UNIT TAB PO SCH (08:49)
[2017-05-10] MEDS: PANTOPRAZOLE SOD 40 MG DELAYED RELEASE TAB PO SCH (08:49)
[2017-05-10] MEDS: TACROLIMUS 1 MG CAP PO SCH ×2 (08:49→21:38)
[2017-05-10] MEDS: FERROUS SULFATE 325 MG (65 MG ELEMENTAL IRON) TAB PO SCH ×3 (08:50→18:45)
[2017-05-10] MEDS: CARVEDILOL 6.25 MG TAB PO SCH ×2 (08:50→21:38)
[2017-05-10] MEDS: cloNIDine HCL 0.1 MG TAB PO SCH ×2 (08:50→21:38)
[2017-05-10] MEDS: CLOPIDOGREL 75 MG TAB PO SCH (08:50)
[2017-05-10] MEDS: TORSEMIDE 20 MG TAB PO SCH ×2 (08:52→18:45)
[2017-05-10] MEDS: SODIUM CHLORIDE 0.9% FLUSH 10 ML FLUSH IV FLUSH SCH ×2 (08:53→21:38)
[2017-05-10] MEDS: MULTIVITAMIN TAB PO SCH (09:00)
--- NOTE | 2017-05-10 10:25 | HHI.PR ---
Subjective Remarks Follow-up symptomatic hypoglycemia/chest contusion 05/09/17-patient seen and examined, reports improvement of chest pain. Blood glucose improved since admission. patient states he does have a h/o DM for which he is currently taking Insulin, however on the day of admission patient states he took the require unit for Blood glucose of 79 despite the fact that he ate 1/2 of what he cooked. 05/10/17-patient seen and examined, blood glucose of 37 however patient asymptomatic, Bun/Cr 90/3.10 Objective Vitals Vital Signs Date Time Temp Pulse Resp B/P (MAP) Pulse Ox O2 Delivery O2 Flow Rate FiO2 05/10/17 08:32 95 21 05/10/17 08:00 96.6 89 18 111/52 (71) 94 05/10/17 00:00 96.3 81 18 113/60 (77) 98 05/09/17 23:41 95 21 05/09/17 20:00 97.3 98 20 145/74 (97) 95 05/09/17 16:14 95 21 05/09/17 16:00 97.7 80 18 114/60 (78) 95 05/09/17 12:00 97.6 74 18 110/58 (75) 95 I/O 05/09/17 05/09/17 05/09/17 05/10/17 05/10/17 05/10/17 07:00 15:00 23:00 07:00 15:00 23:00 Intake Total 220 ml 780 ml 240 ml 360 ml Output Total 250 ml Balance -30 ml 780 ml 240 ml 360 ml Intake Oral 220 ml 780 ml 240 ml 360 ml Output Urine Total 250 ml # Voids 2 4 # Bowel Movements 0 0 Result Diagram: 05/09/17 0814 05/10/17 0530 Imaging Last Impressions Shoulder X-Ray 05/08/17 0000 Signed Impressions: Service Date/Time: Monday, May 08, 2017 12:46 - CONCLUSION: Age-indeterminate sixth and seventh right rib fractures. No other evidence of fracture. Gonzalo Solano MD Maxillofacial CT 05/08/17 0000 Signed Impressions: Service Date/Time: Monday, May 08, 2017 12:34 - CONCLUSION: Fluid identified within the right maxillary sinus, right sphenoid sinus and within the ethmoid air cells. No fracture is visualized.. Dayami Gonzalez MD Head CT 05/08/17 0000 Signed Impressions: Service Date/Time: Monday, May 08, 2017 12:34 - CONCLUSION: Layering blood identified within the right maxillary sinus without visible fracture. The remainder of the exam is unremarkable.. Dayami Gonzalez MD Elbow X-Ray 05/08/17 0000 Signed Impressions: Service Date/Time: Monday, May 08, 2017 12:55 - CONCLUSION: No gross evidence of fracture. Gonzalo Solano MD Chest X-Ray 05/08/17 0000 Signed Impressions: Service Date/Time: Monday, May 08, 2017 15:30 - CONCLUSION: 1. Patchy left lower lung zone atelectasis versus mild consolidation. 2. Blunting left costophrenic sulcus indicating small left pleural effusion. Gonzalo Solano MD Objective Remarks GENERAL: NAD SKIN: multiple skin lacerations to Upper extremities, right side of patient's face HEAD: Normocephalic. EYES: No scleral icterus. No injection or drainage. NECK: Supple, trachea midline. No JVD or lymphadenopathy. CARDIOVASCULAR: Regular rate and rhythm without murmurs, gallops, or rubs. RESPIRATORY: Breath sounds equal bilaterally. No accessory muscle use. GASTROINTESTINAL: Abdomen soft, non-tender, nondistended. MUSCULOSKELETAL: No cyanosis, or edema. Dressing over LUE BACK: Nontender without obvious deformity. No CVA tenderness. A/P Problem List: (1) Hypoglycemia ICD Code: E16.2 - Hypoglycemia Status: Resolved (2) Chest pain ICD Code: R07.9 - Chest pain, unspecified Status: Resolved (3) Hypertension ICD Code: I10 - Hypertension Status: Chronic (4) Hyperlipidemia ICD Code: E78.5 - Hyperlipidemia Status: Chronic (5) CKD (chronic kidney disease), stage III ICD Code: N18.3 - CKD (chronic kidney disease), stage III Status: Acute (6) H/O kidney transplant ICD Code: Z94.0 - H/O kidney transplant Status: Chronic Assessment and Plan 67-year-old man with Symptomatic hypoglycemia Resolved per treatment per Hypoglycemia protocol H/o DM type 2 Will decrease Basal insulin Levemir to 6units HS and continue ISS Check HgA1C Atypical chest pain 2/2 chest contusion d/t fall ACS ruled out per protocol with serial cardiac enzymes and EKG Now resolved Mechanical fall All imaging studies reviewed without any evidence of Fracture PT to treat and eval Fall precaution Other chronic medical conditions including Hypertension/CAD Continue with outpatient medications H/o Renal Transplant Currently on Prograf and Cellcept, however secondary to worsening Bun/Cr Nephrology-Transplant was consulted for further evaluation Monitor Renal function Multiple skin lacerations Treatment with Bacitracin ointment Chronic Right Lower extremity wound Outpatient follow up with Podiatry CAP CXR with evidence of PNA s/p Azithromycin 500mg PO x 1 in Ed, continue with Azithromycin 250mg PO daily x 4 days total Problem Qualifiers (1) Chest pain: Qualified Codes: R07.9 - Chest pain, unspecified Prashanth Faye MD May 10, 2017 10:25
[2017-05-10 12:00] VITALS: BP 149/76; PULSE 85; RESP 18; TEMP 97.1; O2SAT 96
[2017-05-10] MEDS: BACITRACIN TOP OINT 15 GM TUBE TOPICAL SCH ×2 (15:13→21:39)
[2017-05-10 16:00] VITALS: BP 127/79; PULSE 80; RESP 16; TEMP 96.9; O2SAT 95
[2017-05-10 20:00] VITALS: BP 100/64; PULSE 84; RESP 20; TEMP 96.7; O2SAT 97
[2017-05-10] MEDS: PRAVASTATIN SOD 80 MG TAB PO SCH (21:39)
[2017-05-10] MEDS: INSULIN DETEMIR 100 UNITS/ML VIAL SQ SCH (21:39)
[2017-05-11] VITALS: BP 106/60; PULSE 73; RESP 20; TEMP 98; O2SAT 97
[2017-05-11 07:37] LABS: CHLORIDE 101 MEQ/L (98-107); SODIUM (NA) 136 MEQ/L (136-145)
[2017-05-11 07:39] LABS: BICARBONATE 27.7 MEQ/L (21.0-32.0)
[2017-05-11 07:51] LABS: BLOOD UREA NITROGEN 85 MG/DL (7-18); CALCIUM 9.8 MG/DL (8.5-10.1); GLOMERULAR FILTRATION RATE 22 ML/MIN (>89)
[2017-05-11] MEDS: INSULIN ASPART SUPPLEMENTAL SCALE SQ SCH ×4 (08:07→20:49)
[2017-05-11 08:30] VITALS: BP 146/71; PULSE 71; RESP 18; TEMP 97; O2SAT 95
[2017-05-11 08:39] LABS: GLUCOSE,RANDOM 421 MG/DL (74-106)
[2017-05-11] MEDS: MYCOPHENOLATE MOFETIL 500 MG TAB PO SCH ×2 (09:13→20:49)
[2017-05-11] MEDS: CHOLECALCIFEROL (VIT D3) 1000 UNIT TAB PO SCH (09:13)
[2017-05-11] MEDS: CLOPIDOGREL 75 MG TAB PO SCH (09:13)
[2017-05-11] MEDS: PANTOPRAZOLE SOD 40 MG DELAYED RELEASE TAB PO SCH (09:13)
[2017-05-11] MEDS: FERROUS SULFATE 325 MG (65 MG ELEMENTAL IRON) TAB PO SCH ×3 (09:13→17:18)
[2017-05-11] MEDS: MULTIVITAMIN TAB PO SCH (09:13)
[2017-05-11] MEDS: SODIUM CHLORIDE 0.9% FLUSH 10 ML FLUSH IV FLUSH SCH ×2 (09:14→20:50)
[2017-05-11] MEDS: TACROLIMUS 1 MG CAP PO SCH ×2 (09:14→20:50)
[2017-05-11] MEDS: ASPIRIN 81 MG CHEW TAB CHEW SCH (09:14)
[2017-05-11] MEDS: cloNIDine HCL 0.1 MG TAB PO SCH ×2 (09:14→20:50)
[2017-05-11] MEDS: CARVEDILOL 6.25 MG TAB PO SCH ×2 (09:14→20:50)
[2017-05-11] MEDS: MAGNESIUM OXIDE 400 MG TAB PO SCH (09:14)
[2017-05-11] MEDS: AZITHROMYCIN 250 MG TAB PO SCH (09:14)
[2017-05-11] MEDS: BACITRACIN TOP OINT 15 GM TUBE TOPICAL SCH ×2 (09:15→21:00)
[2017-05-11] MEDS: TORSEMIDE 20 MG TAB PO SCH ×2 (09:26→17:18)
[2017-05-11 12:00] VITALS: BP 118/64; PULSE 77; RESP 18; TEMP 96.3; O2SAT 94
--- NOTE | 2017-05-11 13:23 | HHI.PR ---
Subjective Remarks Pt states he feels ok. Denies nausea or vomiting. states he thinks his Cr baseline is around 2.4 but cannot remember exact numbers. Pt states he does get pain w coughing Objective Vitals Vital Signs Date Time Temp Pulse Resp B/P (MAP) Pulse Ox O2 Delivery O2 Flow Rate FiO2 05/11/17 12:00 96.3 77 18 118/64 (82) 94 05/11/17 08:30 97.0 71 18 146/71 (96) 95 05/11/17 00:00 98.0 73 20 106/60 (75) 97 05/10/17 20:00 96.7 84 20 100/64 (76) 97 05/10/17 16:00 96.9 80 16 127/79 (95) 95 I/O 05/10/17 05/10/17 05/10/17 05/11/17 05/11/17 05/11/17 07:00 15:00 23:00 07:00 15:00 23:00 Intake Total 240 ml 360 ml 960 ml Balance 240 ml 360 ml 960 ml Intake Oral 240 ml 360 ml 960 ml # Voids 4 4 2 # Bowel Movements 0 1 0 Result Diagram: 05/09/17 0814 05/11/17 0655 Imaging Last Impressions Shoulder X-Ray 05/08/17 0000 Signed Impressions: Service Date/Time: Monday, May 08, 2017 12:46 - CONCLUSION: Age-indeterminate sixth and seventh right rib fractures. No other evidence of fracture. Gonzalo Solano MD Maxillofacial CT 05/08/17 0000 Signed Impressions: Service Date/Time: Monday, May 08, 2017 12:34 - CONCLUSION: Fluid identified within the right maxillary sinus, right sphenoid sinus and within the ethmoid air cells. No fracture is visualized.. Dayami Gonzalez MD Head CT 05/08/17 0000 Signed Impressions: Service Date/Time: Monday, May 08, 2017 12:34 - CONCLUSION: Layering blood identified within the right maxillary sinus without visible fracture. The remainder of the exam is unremarkable.. Dayami Gonzalez MD Elbow X-Ray 05/08/17 0000 Signed Impressions: Service Date/Time: Monday, May 08, 2017 12:55 - CONCLUSION: No gross evidence of fracture. Gonzalo Solano MD Chest X-Ray 05/08/17 0000 Signed Impressions: Service Date/Time: Monday, May 08, 2017 15:30 - CONCLUSION: 1. Patchy left lower lung zone atelectasis versus mild consolidation. 2. Blunting left costophrenic sulcus indicating small left pleural effusion. Gonzalo Solano MD Objective Remarks GENERAL: elderly male, laying in bed CARDIOVASCULAR: Regular rate and rhythm without murmurs RESPIRATORY: Breath sounds equal bilaterally. No accessory muscle use. GASTROINTESTINAL: Abdomen soft, non-tender, nondistended. MUSCULOSKELETAL: No edema. Dressing over LUE, I did examine the wound and it is non infected A/P Problem List: (1) Hypoglycemia ICD Code: E16.2 - Hypoglycemia Status: Resolved (2) Chest pain ICD Code: R07.9 - Chest pain, unspecified Status: Resolved (3) Hypertension ICD Code: I10 - Hypertension Status: Chronic (4) Hyperlipidemia ICD Code: E78.5 - Hyperlipidemia Status: Chronic (5) CKD (chronic kidney disease), stage III ICD Code: N18.3 - CKD (chronic kidney disease), stage III Status: Acute (6) H/O kidney transplant ICD Code: Z94.0 - H/O kidney transplant Status: Chronic Assessment and Plan 67-year-old man with Symptomatic hypoglycemia Resolved per treatment per Hypoglycemia protocol H/o DM type 2 Basal insulin Levemir at 6units HS and continue ISS. adjust levemir as needed HgA1C pending Atypical chest pain 2/2 chest contusion d/t fall ACS ruled out neg only present w cough Mechanical fall All imaging studies reviewed without any evidence of Fracture Per PT, he doesn't require any home PT Fall precaution Other chronic medical conditions including Hypertension/CAD Continue with outpatient medications H/o Renal Transplant Currently on Prograf and Cellcept, Pt is a transplant pt and nephrology consult was placed. Appreciate recs. Continue hydration Monitor Renal function. Give gently hydration NS@42ml/hr Cr today 2.9 Multiple skin lacerations Treatment with Bacitracin ointment Chronic Right Lower extremity wound Outpatient follow up with Podiatry. change dressings daily. CAP CXR with evidence of PNA s/p Azithromycin 500mg PO x 1 in Ed, continue with Azithromycin 250mg PO daily x 4 days total Discharge Planning nephrology consult pending. Problem Qualifiers (1) Chest pain: Qualified Codes: R07.9 - Chest pain, unspecified Ashley Witt MD May 11, 2017 13:23
[2017-05-11] MEDS: SODIUM CHLOR 0.9% 1000 ML INJ 1,000 ML IV SCH (14:18)
[2017-05-11 16:00] VITALS: BP 123/66; PULSE 65; RESP 18; TEMP 97.2; O2SAT 96
[2017-05-11 16:03] LABS: HEMOGLOBIN A1C 6.1 % (4.3-6.0)
[2017-05-11 20:00] VITALS: BP 146/68; PULSE 65; RESP 20; TEMP 97.9; O2SAT 96
[2017-05-11] MEDS: PRAVASTATIN SOD 80 MG TAB PO SCH (20:50)
[2017-05-11] MEDS: INSULIN DETEMIR 100 UNITS/ML VIAL SQ SCH (20:51)
[2017-05-12] VITALS: BP 111/64; PULSE 75; RESP 20; TEMP 97.6; O2SAT 100
[2017-05-12 00:35] VITALS: PULSE 58
[2017-05-12 04:00] VITALS: BP 125/62; PULSE 72; RESP 20; TEMP 97.5; O2SAT 96
[2017-05-12 06:47] LABS: CALCIUM 9.5 MG/DL (8.5-10.1)
[2017-05-12 07:05] LABS: BICARBONATE 27.2 MEQ/L (21.0-32.0); CREATININE 2.3 MG/DL (0.60-1.30)
[2017-05-12 07:50] VITALS: BP 138/63; PULSE 80; RESP 20; TEMP 98.9; O2SAT 97
[2017-05-12] MEDS: INSULIN ASPART SUPPLEMENTAL SCALE SQ SCH ×2 (08:00→12:00)
[2017-05-12] MEDS: AZITHROMYCIN 250 MG TAB PO SCH (08:16)
[2017-05-12] MEDS: CHOLECALCIFEROL (VIT D3) 1000 UNIT TAB PO SCH (08:16)
[2017-05-12] MEDS: PANTOPRAZOLE SOD 40 MG DELAYED RELEASE TAB PO SCH (08:17)
[2017-05-12] MEDS: MAGNESIUM OXIDE 400 MG TAB PO SCH (08:17)
[2017-05-12] MEDS: MULTIVITAMIN TAB PO SCH (08:17)
[2017-05-12] MEDS: CARVEDILOL 6.25 MG TAB PO SCH (08:17)
[2017-05-12] MEDS: CLOPIDOGREL 75 MG TAB PO SCH (08:17)
[2017-05-12] MEDS: cloNIDine HCL 0.1 MG TAB PO SCH (08:18)
[2017-05-12] MEDS: ASPIRIN 81 MG CHEW TAB CHEW SCH (08:18)
[2017-05-12] MEDS: FERROUS SULFATE 325 MG (65 MG ELEMENTAL IRON) TAB PO SCH ×2 (08:18→13:00)
[2017-05-12] MEDS: MYCOPHENOLATE MOFETIL 500 MG TAB PO SCH (08:19)
[2017-05-12] MEDS: TORSEMIDE 20 MG TAB PO SCH (08:29)
[2017-05-12] MEDS: BACITRACIN TOP OINT 15 GM TUBE TOPICAL SCH (09:00)
[2017-05-12] MEDS: SODIUM CHLORIDE 0.9% FLUSH 10 ML FLUSH IV FLUSH SCH (09:00)
[2017-05-12] MEDS: TACROLIMUS 1 MG CAP PO SCH (09:00)
[2017-05-12 11:50] VITALS: BP 130/62; PULSE 72; RESP 20; TEMP 96.9; O2SAT 96
[2017-05-12] MEDS: SODIUM CHLOR 0.9% 1000 ML INJ 1,000 ML IV SCH (13:19)
--- NOTE | 2017-05-12 13:52 | HHI.DS ---
Discharge Summary Admission Date May 08, 2017 at 16:30 Discharge Date: May 12, 2017 Admitting Diagnosis Chest pain (1) Hypoglycemia ICD Code: E16.2 - Hypoglycemia Status: Resolved (2) Chest pain ICD Code: R07.9 - Chest pain, unspecified Status: Resolved (3) Hypertension ICD Code: I10 - Hypertension Status: Chronic (4) Hyperlipidemia ICD Code: E78.5 - Hyperlipidemia Status: Chronic (5) CKD (chronic kidney disease), stage III ICD Code: N18.3 - CKD (chronic kidney disease), stage III Status: Acute (6) H/O kidney transplant ICD Code: Z94.0 - H/O kidney transplant Status: Chronic Procedures none Brief History - From Admission This is a pleasant 67-year-old male patient with a known medical history of CAD with CABG, hypertension, hyperlipidemia, type 1 diabetes and chronic renal failure presented to the ED post hypoglycemic episode. Patient seen in room, completely alert and oriented 3. He states that this morning he checked his blood sugar and it was 79, therefore he decided to eat his lunch. After this time he does not remember any occurrence except waking up in the ED. Per records, states that patient was found lying down on the sidewalk, combative and his blood sugar at that time was 36. Patient was given D10 and brought into the emergency room. Patient presented with multiple abrasions and skin tears. Patient does have a history of type 1 diabetes and has been managing it since his 20s. Patient sees his PCP regularly and reports his hemoglobin A1c within normal limits. Patient denies any recent illness including fever, chills , shortness of breath, abdominal pain, nausea, vomiting, diarrhea, dysuria. Patient does follow with Dr. English, and underwent a nuclear stress test last year in September. CBC/BMP: 05/09/17 0814 05/12/17 0608 Significant Findings Laboratory Tests Test 05/10/17 05:30 05/11/17 06:55 05/12/17 06:08 Blood Urea Nitrogen 90 MG/DL (7-18) 85 MG/DL (7-18) 78 MG/DL (7-18) Creatinine 3.10 MG/DL (0.60-1.30) 2.90 MG/DL (0.60-1.30) 2.30 MG/DL (0.60-1.30) Random Glucose 37 MG/DL (74-106) 421 MG/DL (74-106) 277 MG/DL (74-106) Estimat Glomerular Filtration Rate 20 ML/MIN (>89) 22 ML/MIN (>89) 29 ML/MIN (>89) Hemoglobin A1c 6.1 % (4.3-6.0) Imaging Last Impressions Shoulder X-Ray 05/08/17 0000 Signed Impressions: Service Date/Time: Monday, May 08, 2017 12:46 - CONCLUSION: Age-indeterminate sixth and seventh right rib fractures. No other evidence of fracture. Gonzalo Solano MD Maxillofacial CT 05/08/17 0000 Signed Impressions: Service Date/Time: Monday, May 08, 2017 12:34 - CONCLUSION: Fluid identified within the right maxillary sinus, right sphenoid sinus and within the ethmoid air cells. No fracture is visualized.. Dayami Gonzalez MD Head CT 05/08/17 0000 Signed Impressions: Service Date/Time: Monday, May 08, 2017 12:34 - CONCLUSION: Layering blood identified within the right maxillary sinus without visible fracture. The remainder of the exam is unremarkable.. Dayami Gonzalez MD Elbow X-Ray 05/08/17 0000 Signed Impressions: Service Date/Time: Monday, May 08, 2017 12:55 - CONCLUSION: No gross evidence of fracture. Gonzalo Solano MD Chest X-Ray 05/08/17 0000 Signed Impressions: Service Date/Time: Monday, May 08, 2017 15:30 - CONCLUSION: 1. Patchy left lower lung zone atelectasis versus mild consolidation. 2. Blunting left costophrenic sulcus indicating small left pleural effusion. Gonzalo Solano MD PE at Discharge GENERAL: elderly male, laying in bed CARDIOVASCULAR: Regular rate and rhythm without murmurs RESPIRATORY: Breath sounds equal bilaterally. No accessory muscle use. GASTROINTESTINAL: Abdomen soft, non-tender, nondistended. MUSCULOSKELETAL: No edema. Dressing over LUE, I did examine the wound and it is non infected Pt update on day of discharge Pt feels well. Cough resolved. No nausea or vomiting. No pain. Eager to go home. Hospital Course 67-year-old man with PNA and chest pain w cough. Pt was treated w azithromycin and completed the course and ACS r/o was neg. Cough and chest pain are now resolved. In addition, pt also found to have acute on chronic CKD. Currently on Prograf and Cellcept as he is transplant pt. He was treated w IVFs and po hydration. Cr on admission was 3.10 and on discharge was 2.3. I spoke w Pt's senior reservoir engineer, Dr. Martins and this is pt's baseline. Pt has an appt w him in 1 month and he would like pt to keep that appt w him. His recommendation is to continue hydrating himself. Pt did have a mechanical fall. All imaging studies reviewed without any evidence of Fracture. Per PT, he doesn't require any home PT Chronic Right Lower extremity wound. Outpatient follow up with Podiatry. change dressings daily. Pt Condition on Discharge: Stable Discharge Disposition: Discharge Home Discharge Time: > 30 minutes Discharge Instructions DIET: Follow Instructions for: Renal Failure Diet Activities you can perform: Regular-No Restrictions Follow up Referrals: Nephrology - 1 Month PCP Follow-up - 1 Week Continued Medications: Aspirin (Aspirin Low Dose) 81 Mg Chew 81 MG CHEW DAILY, TAB 0 Refills Carvedilol (Carvedilol) 6.25 Mg Tab 6.25 MG PO BID, #60 TAB 0 Refills Cholecalciferol (Vitamin D3) 2,000 Unit Cap 2000 UNITS PO DAILY for Nutritional Supplement, #1 BOTTLE 0 Refills Clonidine (Clonidine) 0.1 Mg Tab 0.1 MG PO BID for Blood Pressure Management, #60 TAB 0 Refills Clopidogrel (Clopidogrel) 75 Mg Tab 75 MG PO DAILY for Blood Clot Prevention, #30 TAB 0 Refills Ferrous Gluconate (Ferrous Gluconate) 240 Mg (27 Mg Iron) Tab 240 MG PO TID for Nutritional Supplement, #30 TAB 0 Refills Insulin Glargine Inj (Lantus Inj) 1,000 Unit/10 Ml Vial 10 UNITS SQ HS for Blood Sugar Management, VIAL 0 Refills Insulin Lispro (Human) Inj (Humalog Inj) 1,000 Unit/10 Ml Vial 1-9 UNITS SQ ACHS for Blood Sugar Management, #1 VIAL 0 Refills Max dose at bedtime:( )units; sugars< 70,(0)units; sugars 150-199,(1)unit; sugars 200-249,(3)units; sugars 250-299,(5)units; sugars 300-349,(7)units; sugars more than 349,(9)units. Magnesium Oxide (Magnesium Oxide) 400 Mg Tab 400 MG PO DAILY for Nutritional Supplement, TAB 0 Refills Multiple Vitamin (Multi-Vitamin Daily) 1 Tab Tab 1 TAB PO DAILY for Nutritional Supplement, TAB 0 Refills Mycophenolate (Mycophenolate) 500 Mg Tab 500 MG PO BID for Immunosuppression, #120 TAB 0 Refills Pantoprazole (Protonix) 40 Mg Tab 40 MG PO DAILY for Reflux, #30 TAB 0 Refills Simvastatin (Simvastatin) 40 Mg Tab 40 MG PO HS for Cholesterol Management, #30 TAB 0 Refills Tacrolimus (Tacrolimus) 1 Mg Cap 1 MG PO Q12H for Prevent Transplant Reject, #60 CAP 0 Refills Torsemide (Torsemide) 20 Mg Tab 20 MG PO BID, #60 TAB 0 Refills Ashley Witt MD May 12, 2017 13:52
== END 2017-05-12 15:10 | disposition home or self-care (01) ==
LOC: PHED 11:50 → PHEDA 16:30 → PH3B 17:21
PROVIDERS: ADMIT Hospitalist; ATTEND Hospitalist
DX: E10.649 Type 1 diabetes mellitus with hypoglycemia without coma (principal); R07.9 Chest pain, unspecified; J18.9 Pneumonia, unspecified organism; I13.0 Hypertensive heart and chronic kidney disease with heart failure and stage 1 through stage 4 chronic kidney disease, or unspecified chronic kidney disease; I50.9 Heart failure, unspecified; N18.3 Chronic kidney disease, stage 3 (moderate); I25.10 Atherosclerotic heart disease of native coronary artery without angina pectoris; E78.5 Hyperlipidemia, unspecified; S81.801A Unspecified open wound, right lower leg, initial encounter; S22.41XA Multiple fractures of ribs, right side, initial encounter for closed fracture; K21.9 Gastro-esophageal reflux disease without esophagitis; I25.2 Old myocardial infarction; Z79.4 Long term (current) use of insulin; Z94.0 Kidney transplant status; Z95.1 Presence of aortocoronary bypass graft; Z86.73 Personal history of transient ischemic attack (TIA), and cerebral infarction without residual deficits; Z85.820 Personal history of malignant melanoma of skin; W18.30XA Fall on same level, unspecified, initial encounter
CPT/HCPCS: 70450; 70486; 71045; 73030; 73070; 80048; 80053; 82550; 82552; 82948; 83036; 84484; 85025; 92526; 92610; 93005; 94150; 96372; 96374; 97110; 97116; 97162; 99285; G0378; G8987; G8988; G8996; G8997; G8998; J1815; J2405; J7030; J7507; J7517

== ENCOUNTER 2018-02-27 08:48 | Inpatient (IN) ==
[2018-02-27] MEDS ORDERED: Sod Chloride 0.9% Inj 1,000 ML IV.SIG SCH (09:15)
[2018-02-27 09:33] LABS: Baso % (Auto) 0.3 % (0.0-2.0); Eos # (Auto) 0.2 th/mm3 (0.0-0.4); Eos % (Auto) 2.2 % (0.0-4.0); Hematocrit 35.9 % (39.0-51.0); Hemoglobin 11.5 gm/dL (13.0-17.0); Lymph # (Auto) 0.7 th/mm3 (1.0-4.8); Lymph % (Auto) 8.6 % (9.0-44.0); Mean Corpuscular HGB Conc 31.9 % (32.0-36.0); Mean Corpuscular Hemoglobin 29.6 pg (27.0-34.0); Mean Corpuscular Volume 92.9 fL (80.0-100.0); Mean Platelet Volume 8.7 fL (7.0-11.0); Mono # (Auto) 0.9 th/mm3 (0.0-0.9); Mono % (Auto) 11.2 % (0.0-8.0); Neut # (Auto) 5.9 th/mm3 (1.8-7.7); Neut % (Auto) 77.7 % (16.0-70.0); Platelet Count 146 th/mm3 (150-450); Red Blood Count 3.87 mil/mm3 (4.50-5.90); Red Cell Distribution Width 15.4 % (11.6-17.2); White Blood Count 7.8 th/mm3 (4.0-11.0)
--- NOTE | 2018-02-27 09:45 | XR ---
EXAM DATE: 02/27/2018 9:22 AM EST AGE/SEX: 68 years / Male INDICATIONS: Short of breath CLINICAL DATA: This is the patient's initial encounter. Patient reports that signs and symptoms have been present for 2 days and indicates a pain score of 0/10. MEDICAL/SURGICAL HISTORY: . Hypercholesterolemia. Hypertension Myocardial infarction. Coronary artery disease, congestive heart failure, . CABG. Cardiac cath, Triple bypass. COMPARISON: [facility], CHEST SINGLE AP, 05/08/2017. . FINDINGS: The lungs are hyperinflated with diffuse interstitial thickening. There is blunting of the left costo phrenic angle with loss of visualization of the left diaphragm. Blunting of the right costophrenic an gle with hazy increased opacity. Heart size appears grossly normal. Multiple intact median sternotomy wires. Pulmonary vasculature is obscured by the interstitial markings. CONCLUSION: Left lower lobe atelectasis/consolidation with a small pleural effusion. Small right-sided pleural ef fusion. Diffuse interstitial thickening consistent with likely severe emphysema. Electronically signed by: Dayami Gonzalez MD 02/27/2018 9:44 AM EST
[2018-02-27 09:54] LABS: Albumin 3.1 g/dL (3.4-5.0); Calcium 9.6 mg/dL (8.5-10.1)
[2018-02-27 09:55] LABS: Anion Gap 8 meq/L (5-15); Chloride 110 meq/L (98-107); Glucose,Random 107 mg/dL (74-106); Potassium 5.7 meq/L (3.5-5.1); Sodium 143 meq/L (136-145)
[2018-02-27 09:57] LABS: Alanine Aminotransferase 19 U/L (12-78); Aspartate Aminotransferase 24 U/L (15-37); Blood Urea Nitrogen 43 mg/dL (7-18); Glomerular Filtration Rate 30 mL/min (>89)
[2018-02-27 10:00] LABS: Alkaline Phosphatase 83 U/L (45-117); Total Protein 6.8 g/dL (6.4-8.2)
[2018-02-27 10:01] LABS: Troponin I 0.03 ng/mL (0.02-0.05)
--- NOTE | 2018-02-27 10:07 | ED ---
HPI General Chief Complaint: Shortness of Breath/Dyspnea Stated Complaint: SOB/Diabetic Time Seen by Provider: 02/27/18 09:01 Source: patient Mode of arrival: ambulatory Limitations: no limitations History of Present Illness MD Complaint: Reports shortness of breath Onset (ago): day(s) (2) Context: Reports other (cough) Severity: severe Consistency/Duration: constant and progressively worsening Relieving factors: nothing Exacerbating factors: nothing Known history of: Reports diabetes and other (ESRD s/p transplant) Associated symptoms: Reports cough and other (Weakness); Denies fever and sputum production Related Data Home oxygen amount: none Home Medications Medication Instructions Recorded Confirmed aspirin [Aspir-81] 81 mg PO DAILY 02/27/18 02/27/18 carvedilol 6.25 mg PO BID 02/27/18 02/27/18 clonidine HCl 0.1 mg PO BID 02/27/18 02/27/18 clopidogrel 75 mg PO DAILY 02/27/18 02/27/18 iron 27 mg PO TID 02/27/18 02/27/18 magnesium 400 mg PO DAILY 02/27/18 02/27/18 multivitamin [Multiple Vitamins] 1 tab PO DAILY 02/27/18 02/27/18 mycophenolate mofetil 500 mg PO BID 02/27/18 02/27/18 pantoprazole 40 mg PO DAILY 02/27/18 02/27/18 simvastatin 40 mg PO QPM 02/27/18 02/27/18 tacrolimus 1 mg PO Q12H 02/27/18 02/27/18 torsemide 20 mg PO BID 02/27/18 02/27/18 Allergies Allergy/AdvReac Type Severity Reaction Status Date / Time penicillin G Allergy Severe RASH Unverified 02/27/18 09:24 Review of Systems ROS: all other systems reviewed are negative [facility] Medical History Medical History Diabetes (Acute) History of renal dialysis (Acute) History of skin cancer (Acute) Hx of unilateral nephrectomy (Acute) Surgical History Surgical History History of quadruple bypass (Acute) Social History Social History Substance History: No History of Abuse Smoking Status: Former smoker How Often Do You Have a Drink Containing Alcohol: Never Immunization History Tetanus Immunization: Unsure Exam Const General: cooperative, healthy appearing, well developed and well groomed Orientation: alert, awake and oriented x3 HENMT Head: normal to inspection, normocephalic and atraumatic Eyes Alignment and Position: alignment normal Conjunctivae: conjunctivae normal Sclera: sclerae normal EOM: EOM intact bilaterally Neck Neck: normal visual inspection and full ROM Chest Chest: normal inspection of the chest Resp Effort & Inspection: labored and other Auscultation: rhonchi left lower Cardio Rate: regular rate Rhythm: regular rhythm GI Inspection: normal to inspection Palpation: soft Back/Spine/Pelvis Cervical Spine: cervical ROM normal Thoracic/Lumbar Spine: thoraco-lumbar ROM normal Skin General: turgor normal Wounds: wounds noted (Wound VAC on the right foot) Neuro General: alert, awake, oriented x3, moves all extremities and CN's II-XI intact bilaterally Extrem General: normal to inspection, full ROM and no edema Psych Appearance: grossly normal Mental Status: mental status grossly normal Speech and Movement: speech and movement normal Mood: congruent mood Affect: normal affect Attitude: cooperative Thought Process: normal Thought Content: normal Judgment: judgment good Course Initial Documented Vital Signs Temperature 99 F 02/27/18 08:59 Pulse Rate 80 02/27/18 08:59 Blood Pressure 163/67 H 02/27/18 08:59 Pulse Oximetry 80 L 02/27/18 08:59 Last Documented Vital Signs Temperature 99 F 02/27/18 08:59 Pulse Rate 80 02/27/18 08:59 Blood Pressure 163/67 H 02/27/18 08:59 Pulse Oximetry 99 02/27/18 09:06 Critical Care Time Critical Care Time: Yes Total Critical Care Time: 30 Attestation: Time to perform other separately billable procedures was not included in the critical care time. My time did not include minutes spent treating any other patients simultaneously or on activities that did not directly contribute to the patient's treatment. The services I provided to this patient were to treat and/or prevent clinically significant deterioration due to respiratory distress I provided critical care services requiring my management, as noted below: Chart data review, documentation time, medication orders and management, vital sign assessments/reviewing monitor data, ordering and reviewing lab tests, ordering and interpreting/reviewing x-rays and diagnostic studies, care of the patient and discussion of the patient with the admitting physicians Medical Decision Making MDM Narrative Medical decision making narrative: This patient presents with shortness of breath. He was in respiratory distress on arrival with sats in the 80s. Sats improved to the upper 90s on 4 L of oxygen. Pertinent history is that he has a history of an splint. He states that he has been told most recently that his kidney function is fair. On exam, he is having respiratory distress. He has rhonchi on the left. He is afebrile. His clinical picture is looking more like CHF and less like pneumonia. I will give him a dose of Lasix and placed Nitropaste. I have not addressed the hyperkalemia per se. He is getting fluids and Lasix which are likely to decrease the potassium. Medical Screen Exam Complete: Yes Emergency Medical Condition: Yes Differential Diagnosis Differential Diagnosis: Differential diagnosis of dyspnea includes but is not limited to congestive heart failure, pneumonia, wheezing, pneumothorax, pulmonary embolism Lab Data Lab results reviewed: Yes I reviewed the patient's lab results. Result diagrams: 02/27/18 09:08 02/27/18 09:08 Lab Results 02/27/18 02/27/18 02/27/18 Range/Units 09:08 09:08 09:08 CBC w Diff Auto diff final WBC 7.8 (4.0-11.0) th/mm3 RBC 3.87 L (4.50-5.90) mil/mm3 Hgb 11.5 L (13.0-17.0) gm/dL Hct 35.9 L (39.0-51.0) % MCV 92.9 (80.0-100.0) fL MCH 29.6 (27.0-34.0) pg MCHC 31.9 L (32.0-36.0) % RDW 15.4 (11.6-17.2) % Plt Count 146 L (150-450) th/mm3 MPV 8.7 (7.0-11.0) fL Neut % (Auto) 77.7 H (16.0-70.0) % Lymph % (Auto) 8.6 L (9.0-44.0) % Spencer % (Auto) 11.2 H (0.0-8.0) % Eos % (Auto) 2.2 (0.0-4.0) % Baso % (Auto) 0.3 (0.0-2.0) % Neut # (Auto) 5.9 (1.8-7.7) th/mm3 Lymph # (Auto) 0.7 L (1.0-4.8) th/mm3 Spencer # (Auto) 0.9 (0.0-0.9) th/mm3 Eos # (Auto) 0.2 (0.0-0.4) th/mm3 Baso # (Auto) 0.0 (0.0-0.2) th/mm3 WBC Differential . Differential Comment . Sodium 143 (136-145) meq/L Potassium 5.7 H (3.5-5.1) meq/L Chloride 110 H (98-107) meq/L Carbon Dioxide 25.0 (21.0-32.0) meq/L Anion Gap 8 (5-15) meq/L BUN 43 H (7-18) mg/dL Creatinine 2.20 H (0.60-1.30) mg/dL Estimated GFR 30 L (>89) mL/min Random Glucose 107 H (74-106) mg/dL Lactic Acid (0.4-2.0) mmol/L Calcium 9.6 (8.5-10.1) mg/dL Total Bilirubin 0.8 (0.2-1.0) mg/dL AST 24 (15-37) U/L ALT 19 (12-78) U/L Alkaline Phosphatase 83 (45-117) U/L Troponin I 0.03 (0.02-0.05) ng/mL B-Natriuretic Peptide 976 H (0-100) pg/mL Total Protein 6.8 (6.4-8.2) g/dL Albumin 3.1 L (3.4-5.0) g/dL 02/27/18 Range/Units 09:20 CBC w Diff WBC (4.0-11.0) th/mm3 RBC (4.50-5.90) mil/mm3 Hgb (13.0-17.0) gm/dL Hct (39.0-51.0) % MCV (80.0-100.0) fL MCH (27.0-34.0) pg MCHC (32.0-36.0) % RDW (11.6-17.2) % Plt Count (150-450) th/mm3 MPV (7.0-11.0) fL Neut % (Auto) (16.0-70.0) % Lymph % (Auto) (9.0-44.0) % Spencer % (Auto) (0.0-8.0) % Eos % (Auto) (0.0-4.0) % Baso % (Auto) (0.0-2.0) % Neut # (Auto) (1.8-7.7) th/mm3 Lymph # (Auto) (1.0-4.8) th/mm3 Spencer # (Auto) (0.0-0.9) th/mm3 Eos # (Auto) (0.0-0.4) th/mm3 Baso # (Auto) (0.0-0.2) th/mm3 WBC Differential Differential Comment Sodium (136-145) meq/L Potassium (3.5-5.1) meq/L Chloride (98-107) meq/L Carbon Dioxide (21.0-32.0) meq/L Anion Gap (5-15) meq/L BUN (7-18) mg/dL Creatinine (0.60-1.30) mg/dL Estimated GFR (>89) mL/min Random Glucose (74-106) mg/dL Lactic Acid 1.2 (0.4-2.0) mmol/L Calcium (8.5-10.1) mg/dL Total Bilirubin (0.2-1.0) mg/dL AST (15-37) U/L ALT (12-78) U/L Alkaline Phosphatase (45-117) U/L Troponin I (0.02-0.05) ng/mL B-Natriuretic Peptide (0-100) pg/mL Total Protein (6.4-8.2) g/dL Albumin (3.4-5.0) g/dL Imaging Data Attestation: I personally reviewed and interpreted this imaging study as follows : Radiologist's impression: Chest X-Ray 02/27/18 09:06 CONCLUSION: Left lower lobe atelectasis/consolidation with a small pleural effusion. Small right-sided pleural effusion. Diffuse interstitial thickening consistent with likely severe emphysema. ECG Data EKG Prior to Arrival: No Attestation: I personally reviewed and interpreted this ECG as follows: Discharge Plan Discharge Disposition Patient Disposition: 30 Still Patient Discharge Details Diagnosis: Acute respiratory distress, Pulmonary edema, Chronic renal insufficiency, Acute hyperkalemia Physicians Team ED Provider: Zena Dobbs Primary Care Provider: Omar Simon Rxs /Orders / Referrals /Forms Prescriptions: No Action multivitamin [Multiple Vitamins] Tablet 1 tab PO DAILY RF: 0 clonidine HCl 0.1 mg Tablet 0.1 mg PO BID RF: 0 carvedilol 6.25 mg Tablet 6.25 mg PO BID RF: 0 torsemide 20 mg Tablet 20 mg PO BID RF: 0 clopidogrel 75 mg Tablet 75 mg PO DAILY RF: 0 aspirin [Aspir-81] 81 mg Tablet,Delayed Release (Dr/Ec) 81 mg PO DAILY RF: 0 simvastatin 40 mg Tablet 40 mg PO QPM RF: 0 mycophenolate mofetil 500 mg Tablet 500 mg PO BID RF: 0 tacrolimus 1 mg Capsule 1 mg PO Q12H RF: 0 iron 18 mg Tablet 27 mg PO TID RF: 0 magnesium 200 mg Tablet 400 mg PO DAILY RF: 0 pantoprazole 40 mg PO DAILY RF: 0 Status ED Status: Pending Admission
--- NOTE | 2018-02-27 12:06 | P.HPIM ---
History of Present Illness Primary Care Physician: Omar Simon History of Present Illness: This patient is a 68-year-old male with a diagnosis of poorly controlled diabetes, coronary artery disease status post CABG, hypertension, dyslipidemia, renal transplant currently on mycophenolate and tacrolimus. The patient also has multiple surgeries to both of his feet from complications of diabetes. He has amputations of all of his toes of the left foot and multiple toes on the right. He currently has a wound VAC in place for a right lateral foot ulceration which she is being treated for by sales development specialist Dr. Hanna. The patient presented with complaints of shortness of breath that started 2 days ago and has been getting worse. In the emergency department a chest x-ray was done which shows bilateral pulmonary vascular congestion and BNP was elevated. I was then called to evaluate the patient for admission. Past medical history poorly controlled diabetes, coronary artery disease status post CABG, hypertension, dyslipidemia, renal transplant currently on mycophenolate and tacrolimus Past surgical history CABG, peripheral vascular disease status post stent to the right lower extremity, multiple amputations of the toes on the left foot and right foot. Family history significant for coronary artery disease. Inpatient Certification: I certify that the inpatient services were ordered in accordance with Medicare regulations governing the order. This includes certification that hospital inpatient services are reasonable and necessary and in the case of services not specified as inpatient-only under 42 CFR 419.22(n), that they are appropriately provided as inpatient services in accordance to with the 2-midnight benchmark under 43 CFR 412.3(e) Estimated Total Length of Stay (Days): 3 Plans for Post Hospital Care: Home Review of Systems All other systems reviewed negative except as stated in HPI [facility] - History History Provided By: Patient - Medical History Medical History: Medical History (Last Reviewed 02/27/18 @ 10:07 by Zena Dobbs) Diabetes History of renal dialysis History of skin cancer Hx of unilateral nephrectomy - Surgical History Surgical History: Surgical History (Last Updated 02/27/18 @ 09:18 by Lorin Turcios RN) History of quadruple bypass - Tobacco History Smoking Status: Former smoker - Alcohol History How Often Do You Have a Drink Containing Alcohol: Never - Substance Use History Substance History: No History of Abuse - Immunization History Tetanus Immunization: Unsure Medications and Allergies Active Medications: Active Medications Aspirin (Aspirin Chew) 81 mg PO DAILY RICKI Atorvastatin Calcium (Lipitor) 40 mg PO HS RICKI Carvedilol (Coreg) 3.125 mg PO BID RICKI Clopidogrel Bisulfate (Plavix) 75 mg PO DAILY RICKI Furosemide (Lasix Inj) 40 mg IV.PUSH TID RICKI Mycophenolate Mofetil (Cellcept) 500 mg PO BID@0600,1800 [facility] Pantoprazole Sodium (Protonix) 40 mg PO DAILY RICKI Tacrolimus (Prograf) 1 mg PO BID@0600,1800 [facility] Allergies Allergy/AdvReac Type Severity Reaction Status Date / Time penicillin G Allergy Severe RASH Unverified 02/27/18 09:24 Home Medications Medication Instructions Recorded Confirmed Type aspirin [Aspir-81] 81 mg PO DAILY 02/27/18 02/27/18 History carvedilol 6.25 mg PO BID 02/27/18 02/27/18 History clonidine HCl 0.1 mg PO BID 02/27/18 02/27/18 History clopidogrel 75 mg PO DAILY 02/27/18 02/27/18 History iron 27 mg PO TID 02/27/18 02/27/18 History magnesium 400 mg PO DAILY 02/27/18 02/27/18 History multivitamin [Multiple Vitamins] 1 tab PO DAILY 02/27/18 02/27/18 History mycophenolate mofetil 500 mg PO BID 02/27/18 02/27/18 History pantoprazole 40 mg PO DAILY 02/27/18 02/27/18 History simvastatin 40 mg PO QPM 02/27/18 02/27/18 History tacrolimus 1 mg PO Q12H 02/27/18 02/27/18 History torsemide 20 mg PO BID 02/27/18 02/27/18 History Exam Vital signs: Vital Signs 02/27/18 08:59 02/27/18 09:01 02/27/18 09:06 Temperature 99 F Pulse Rate 80 Respiratory Rate Blood Pressure 163/67 H Pulse Oximetry 80 L 99 99 02/27/18 10:31 02/27/18 11:07 02/27/18 11:34 Temperature Pulse Rate 71 66 Respiratory Rate 22 20 Blood Pressure 150/66 H 144/68 H Pulse Oximetry 95 96 96 02/27/18 11:47 Temperature Pulse Rate 75 Respiratory Rate 20 Blood Pressure 133/60 Pulse Oximetry Intake & Output 02/26/18 02/27/18 02/27/18 18:59 06:59 18:59 Intake Total 500 / 500 Balance 500 / 500 Intake: IV 500 / 500 NS Inj 1,000 ML @ 1000 mls/hr 500 / 500 IV.SIG BOLUS RICKI Rx#:[id number] Narrative: General patient complains of some shortness of breath when he lies flat. HEENT extraocular movements are intact, clear oropharyngeal mucosa, patient has a quarter shaped growth on his left ear which is dark in appearance. Cardiovascular S1-S2 audible Respiratory bibasilar crackles Abdomen soft, nontender, nondistended, normal bowel sounds Extremities wound VAC in place on the right lateral foot. The patient has multiple digit amputations of the left and right foot. Dry scaly skin noted on the right moore. Neuro patient moves all 4 extremities and sensation is intact bilaterally Results - Labs CBC & Chem 7: 02/27/18 09:08 02/27/18 09:08 Labs: Short CBC 02/27/18 Range/Units 09:08 WBC 7.8 (4.0-11.0) th/mm3 Hgb 11.5 L (13.0-17.0) gm/dL Hct 35.9 L (39.0-51.0) % Plt Count 146 L (150-450) th/mm3 BMP 02/27/18 09:08 Sodium 143 Potassium 5.7 H Chloride 110 H Carbon Dioxide 25.0 BUN 43 H Creatinine 2.20 H Calcium 9.6 Cardiac Enzymes 02/27/18 Range/Units 09:08 Troponin I 0.03 (0.02-0.05) ng/mL Liver Function 02/27/18 Range/Units 09:08 Total Bilirubin 0.8 (0.2-1.0) mg/dL AST 24 (15-37) U/L ALT 19 (12-78) U/L Alkaline Phosphatase 83 (45-117) U/L Albumin 3.1 L (3.4-5.0) g/dL - Imaging Impressions Chest X-Ray 02/27/18 09:06 CONCLUSION: Left lower lobe atelectasis/consolidation with a small pleural effusion. Small right-sided pleural effusion. Diffuse interstitial thickening consistent with likely severe emphysema. Caprini VTE Risk Assessment Caprini VTE Risk Assessment: Moderate/High Risk (score >= 2) Caprini Risk Assessment Model: Point Value = 1 Point Value = 2 Point Value = 3 Point Value = 5 Age 41-60 Minor surgery BMI > 25 kg/m2 Swollen legs Varicose veins or History of unexplained or recurrent spontaneous Oral contraceptives or hormone replacement Sepsis (< 1 month) Serious lung disease, including pneumonia (< 1 month) Abnormal pulmonary function Acute myocardial infarction Congestive heart failure (< 1 month) History of inflammatory bowel disease Medical patient at bed rest Age 61-74 Arthroscopic surgery Major open surgery (> 45 min) Laparoscopic surgery (> 45 min) Malignancy Confined to bed (> 72 hours) Immobilizing plaster cast Central venous access Age >= 75 History of VTE Family history of VTE Factor V Leiden Prothrombin [id number] Lupus anticoagulant Anticardiolipin antibodies Elevated serum homocysteine Heparin-induced thrombocytopenia Other congenital or acquired thrombophilia Stroke (< 1 month) Elective arthroplasty Hip, pelvis, or leg fracture Acute spinal cord injury (< 1 month) Prophylaxis Regimen: Total Risk Factor Score Risk Level Prophylaxis Regimen 0-1 Low Early ambulation 2 Moderate Order ONE of the following: *Sequential Compression Device (SCD) *Heparin 5000 units SQ BID 3-4 Higher Order ONE of the following medications: *Heparin 5000 units SQ TID *Enoxaparin/Lovenox 40 mg SQ daily (WT < 150 kg, CrCl > 30 mL/min) *Enoxaparin/Lovenox 30 mg SQ daily (WT < 150 kg, CrCl > 10-29 mL/min) *Enoxaparin/Lovenox 30 mg SQ BID (WT < 150 kg, CrCl > 30 mL/min) AND/OR *Sequential Compression Device (SCD) 5 or more Highest Order ONE of the following medications: *Heparin 5000 units SQ TID (Preferred with Epidurals) *Enoxaparin/Lovenox 40 mg SQ daily (WT < 150 kg, CrCl > 30 mL/min) *Enoxaparin/Lovenox 30 mg SQ daily (WT < 150 kg, CrCl > 10-29 mL/min) *Enoxaparin/Lovenox 30 mg SQ BID (WT < 150 kg, CrCl > 30 mL/min) AND *Sequential Compression Device (SCD) Assessment and Plan - Plan This patient is a 68-year-old male with a diagnosis of poorly controlled diabetes, coronary artery disease status post CABG, hypertension, dyslipidemia, renal transplant currently on mycophenolate and tacrolimus. The patient also has multiple surgeries to both of his feet from complications of diabetes. He has amputations of all of his toes of the left foot and multiple toes on the right. He currently has a wound VAC in place for a right lateral foot ulceration which she is being treated for by sales development specialist Dr. Hanna. The patient presented with complaints of shortness of breath that started 2 days ago and has been getting worse. 1. Acute hypoxic respiratory failure possibly secondary to fluid overload. 2. Hyperkalemia The patient's chest x-ray shows pulmonary vascular congestion and small bilateral pleural effusions. The patient was hypoxic and placed on supplemental oxygen. BNP is elevated. On physical examination the patient does have bibasilar crackles and positive JVD. He was started on IV Lasix. We will monitor strict ins and outs. A 2D echocardiogram will be ordered. Patient has a potassium level of 5.7, slightly elevated. An EKG has been ordered. We will follow-up with EKG. He is currently on Lasix IV. I will follow-up a.m. labs. Continue supplemental oxygen as needed. Currently the patient is on 2 L of supplemental O2. Coreg dose will be given however half dose given he is currently in an exacerbation. 3. Status post kidney transplant Patient has chronic kidney disease he states that his baseline serum creatinine is 2.2. Continue tacrolimus and mycophenolate. We will follow-up a.m. labs. 4. Right foot cellulitis Patient has a wound VAC in place. He says he was previously on antibiotics however does not remember which antibiotic he was on and was unable to pick them up because he could not afford them. Currently he is afebrile, WBC count is normal. Patient will be started on clindamycin p.o. 5. Coronary artery disease status post CABG 6. Peripheral vascular disease Continue aspirin, Plavix, statin. Patient is thrombocytopenic, no pharmacal therapy for DVT prophylaxis. No SCDs as the patient currently has wound VAC in place of his right foot and pain in the distal left shins.
--- NOTE | 2018-02-27 15:40 | ECG ---
Date Performed: 02/27/2018 Time Performed: 09:00:24 PTAGE: 68 years EKG: Sinus rhythm NORMAL ECG PREVIOUS TRACING : 05/08/2017 21.37 Compared to previous tracing, there are now no criteria for septal wall Myocardial infarction. DOCTOR: Arnie Cuba Interpretating Date/Time 02/27/2018 15:38:40
--- NOTE | 2018-02-27 15:40 | ECG ---
Date Performed: 02/27/2018 Time Performed: 12:09:58 PTAGE: 68 years EKG: Sinus rhythm NORMAL ECG PREVIOUS TRACING : 02/27/2018 09.00 Since the previous tracing, no significant change noted DOCTOR: Arnie Cuba Interpretating Date/Time 02/28/2018 14:31:08
[2018-02-27 18:12] LABS: Potassium 5.7 meq/L (3.5-5.1)
[2018-02-27 18:15] LABS: Calcium 9.7 mg/dL (8.5-10.1); Carbon Dioxide 23.3 meq/L (21.0-32.0)
[2018-02-28 06:12] LABS: Baso % (Auto) 0.1 % (0.0-2.0); Eos # (Auto) 0.1 th/mm3 (0.0-0.4); Eos % (Auto) 1.1 % (0.0-4.0); Hematocrit 32.3 % (39.0-51.0); Hemoglobin 10.5 gm/dL (13.0-17.0); Lymph # (Auto) 0.5 th/mm3 (1.0-4.8); Lymph % (Auto) 6.1 % (9.0-44.0); Mean Corpuscular HGB Conc 32.3 % (32.0-36.0); Mean Corpuscular Hemoglobin 29.7 pg (27.0-34.0); Mean Corpuscular Volume 91.9 fL (80.0-100.0); Mean Platelet Volume 9.4 fL (7.0-11.0); Mono # (Auto) 0.7 th/mm3 (0.0-0.9); Mono % (Auto) 8.6 % (0.0-8.0); Neut # (Auto) 6.3 th/mm3 (1.8-7.7); Neut % (Auto) 84.1 % (16.0-70.0); Platelet Count 125 th/mm3 (150-450); Red Blood Count 3.52 mil/mm3 (4.50-5.90); Red Cell Distribution Width 15.1 % (11.6-17.2); White Blood Count 7.6 th/mm3 (4.0-11.0)
[2018-02-28 06:18] LABS: Potassium 5.5 meq/L (3.5-5.1)
[2018-02-28 06:23] LABS: Calcium 9.1 mg/dL (8.5-10.1); Carbon Dioxide 22.4 meq/L (21.0-32.0)
[2018-02-28 06:48] LABS: Magnesium 2.2 mg/dL (1.5-2.5)
[2018-02-28] MEDS ORDERED: Vancomycin Inj 1,000 MG in Sodium Chlor 0.9% Inj 250 ML IV.SIG ONE (11:02)
[2018-02-28] MEDS ORDERED: Dextrose 50% in Water 50 ML Vial IV.PUSH PRN (11:14)
--- NOTE | 2018-02-28 11:15 | P.PNIM ---
Subjective Interval history: Patient complains of pain in his right foot. No complaints of shortness of breath. No chest pain. Physical Exam Vital signs: Vital Signs 02/27/18 11:34 02/27/18 11:47 02/27/18 13:13 Temperature Pulse Rate 75 72 Respiratory Rate 20 Blood Pressure 133/60 Pulse Oximetry 96 02/27/18 16:00 02/27/18 16:15 02/27/18 17:29 Temperature 98 F 97.6 F Pulse Rate 70 68 69 Respiratory Rate 20 20 Blood Pressure 122/59 L 148/65 H Pulse Oximetry 93 L 94 L 02/27/18 20:00 02/28/18 00:00 02/28/18 08:00 Temperature 98.7 F 98.8 F 96.9 F L Pulse Rate 72 73 72 Respiratory Rate 18 18 20 Blood Pressure 146/65 H 149/65 H 147/65 H Pulse Oximetry 97 97 94 L Intake & Output 02/27/18 02/28/18 02/28/18 18:59 06:59 18:59 Intake Total 500 / 500 Output Total 850 / 850 600 / 600 Balance -350 / -350 -600 / -600 Weight 65.1 kg 95.1 kg Intake: IV 500 / 500 NS Inj 1,000 ML @ 1000 mls/hr 500 / 500 IV.SIG BOLUS RICKI Rx#:[id number] Output: Urine 850 / 850 600 / 600 Other: Weight On Admission 65.1 kg Narrative: Patient not in any acute distress Dark round growth on the patients left ear measuring 2x2 cm. S1S2 Bi basilar crackles soft, nontender, nondistended. Normal bowel sounds. Right foot open ulcer, no active drainage. Wound vac in place. Results - Labs CBC & Chem 7: 02/28/18 05:00 03/01/18 06:13 Laboratory Results - last 24 hr 02/27/18 02/27/18 02/28/18 15:48 17:44 05:00 CBC w Diff Auto diff final WBC 7.6 RBC 3.52 L Hgb 10.5 L Hct 32.3 L MCV 91.9 MCH 29.7 MCHC 32.3 RDW 15.1 Plt Count 125 L MPV 9.4 Neut % (Auto) 84.1 H Lymph % (Auto) 6.1 L Erath % (Auto) 8.6 H Eos % (Auto) 1.1 Baso % (Auto) 0.1 Neut # (Auto) 6.3 Lymph # (Auto) 0.5 L Erath # (Auto) 0.7 Eos # (Auto) 0.1 Baso # (Auto) 0.0 WBC Differential . Differential Comment . Sodium 141 Potassium 5.7 H Chloride 109 H Carbon Dioxide 23.3 Anion Gap 9 BUN 43 H Creatinine 2.10 H Estimated GFR 32 L POC Glucose 80 Random Glucose 103 Calcium 9.7 Magnesium 02/28/18 02/28/18 05:00 07:57 CBC w Diff WBC RBC Hgb Hct MCV MCH MCHC RDW Plt Count MPV Neut % (Auto) Lymph % (Auto) Erath % (Auto) Eos % (Auto) Baso % (Auto) Neut # (Auto) Lymph # (Auto) Erath # (Auto) Eos # (Auto) Baso # (Auto) WBC Differential Differential Comment Sodium 138 Potassium 5.5 H Chloride 105 Carbon Dioxide 22.4 Anion Gap 11 BUN 52 H Creatinine 2.30 H Estimated GFR 29 L POC Glucose 259 H Random Glucose 262 H D Calcium 9.1 Magnesium 2.2 Microbiology 02/27/18 09:13 Blood - Peripheral Aerobic Blood Culture - Preliminary No growth in 1 day 02/27/18 09:13 Blood - Peripheral Anaerobic Blood Culture - Preliminary No growth in 1 day 02/27/18 09:08 Blood - Peripheral Aerobic Blood Culture - Preliminary No growth in 1 day 02/27/18 09:08 Blood - Peripheral Anaerobic Blood Culture - Preliminary No growth in 1 day 02/27/18 09:20 Nasal Wash Influenza Types A,B Antigen - Final Negative for FLU A and B antigen Infection due to influenza A or B cannot be ruled out since the antigen present in the sample may be below the detection limit of the test. Assessment and Plan - Plan This patient is a 68-year-old male with a diagnosis of poorly controlled diabetes, coronary artery disease status post CABG, hypertension, dyslipidemia, renal transplant currently on mycophenolate and tacrolimus. The patient also has multiple surgeries to both of his feet from complications of diabetes. He has amputations of all of his toes of the left foot and multiple toes on the right. He currently has a wound VAC in place for a right lateral foot ulceration which she is being treated for by oil painter Dr. Hanna. The patient presented with complaints of shortness of breath that started 2 days ago and has been getting worse. 1. Acute hypoxic respiratory failure possibly secondary to fluid overload. 2. Hyperkalemia The patient's chest x-ray shows pulmonary vascular congestion and small bilateral pleural effusions. The patient was hypoxic and placed on supplemental oxygen. BNP is elevated. On physical examination the patient does have bibasilar crackles and positive JVD. He is currently on Continue to monitor strict ins and outs. A 2D echocardiogram is pending Patient has a potassium level of 5.5 improved from yesterday. Continue IV Lasix and monitor a.m. labs. Continue supplemental oxygen as needed. Currently the patient is on 2 L of supplemental O2. Coreg dose will be given however half dose given he is currently in an exacerbation. Once the patient is diuresed his Coreg dose can be increased. 3. Status post kidney transplant Patient has chronic kidney disease he states that his baseline serum creatinine is 2.2. Continue tacrolimus and mycophenolate. We will follow-up a.m. labs. 4. Right foot cellulitis Patient has a wound VAC in place. He says he was previously on antibiotics however does not remember which antibiotic he was on and was unable to pick them up because he could not afford them. Currently he is afebrile, WBC count is normal. Patient will be started on clindamycin p.o. 5. Coronary artery disease status post CABG 6. Peripheral vascular disease Continue aspirin, Plavix, statin. Patient is thrombocytopenic, no pharmacal therapy for DVT prophylaxis. No SCDs as the patient currently has wound VAC in place of his right foot and pain in the distal left shins.
--- NOTE | 2018-02-28 11:49 | P.PNWCN ---
Wound Care Nurse Consult Additional information: Patient not seen for wound VAC management. Patient came in with home wound VAC being applied routinely by home health care nurses. Per RN home wound VAC was malfunctioning last night and battery is now . Instructed RN to remove wound VAC dressing and apply moist to dry dressing per wound VAC policy. Supplies have been ordered for wound VAC dressings while patient is in hospital to be routinely changed by floor nurses every 48 t0 72 hours or as ordered by physician. Wound care does not apply routine VAC dressing changes. Spoke STANISLAW Torres and Doctor Clarence regarding this.
[2018-02-28] MEDS: Insulin NovoLOG Aspart Correctional Sugar Inj SQ SCH ×3 (12:37→22:22)
--- NOTE | 2018-02-28 13:04 | XR ---
EXAM DATE: 02/28/2018 12:35 PM EST AGE/SEX: 68 years / Male INDICATIONS: Inflammation right foot. CLINICAL DATA: This is the patient's subsequent encounter. Patient reports that signs and symptoms h ave been present for 2 days and indicates a pain score of 0/10. MEDICAL/SURGICAL HISTORY: Diabetes mellitus type II. Hypertension. CAD CABG. Renal transplan t. right foot surgery COMPARISON: [facility] [place]OT RIGHT LIMITED (2VWS), 01/26/2011. . FINDINGS: Marked deformity of the right foot is noted. Absence of the second, third, fourth and fifth toes are characteristic of previous amputation. There is partial opacification of the third metatarsal and com plete amputation of the fifth metatarsal. Tissue swelling is seen along the lateral aspect of the foot. Wound VAC is noted in place. Periosteal reaction and significant joint destruction is seen at the base of the first metatarsal. Th ere is no other destructive changes are seen. Significant soft tissue swelling seen along the dorsum of the foot. CONCLUSION: Joint destructive process at the base of the first metatarsal with associated periosteal reaction. Significant deformity of the forefoot following amputations as described. Wound VAC along the dorsal lateral margin of the foot. No other significant abnormality. Electronically signed by: Franck Jackman MD 02/28/2018 1:02 PM EST
--- NOTE | 2018-02-28 13:25 | ECHRPT ---
Indication: CVA/TIA CONCLUSIONS Normal left ventricular size. Wall thickness is normal. The left ventricular systolic function is normal with an estimated ejection fraction in the range of 55-60%. Mild mitral valve regurgitation. Mild mitral annular calcification. Aortic valve sclerosis is present. There is mild tricuspid valve regurgitation. The estimated pulmonary arterial pressure is 59 mmHg. BP: / HR: Rhythm: MEASUREMENTS (Male / Female) Normal Values Technical Quality:Fair 2D ECHO LV Diastolic Diameter PLAX 3.8 cm 4.2 - 5.9 / 3.9 - 5.3 cm LV Systolic Diameter PLAX 2.3 cm IVS Diastolic Thickness 1.0 cm 0.6 - 1.0 / 0.6 - 0.9 cm LVPW Diastolic Thickness 1.0 cm 0.6 - 1.0 / 0.6 - 0.9 cm LV Relative Wall Thickness 0.5 RV Internal Dim ED PLAX 3.7 cm LVOT Diameter 2.0 cm Aortic Root Diameter 3.0 cm LA Systolic Diameter LX 2.9 cm 3.0 - 4.0 / 2.7 - 3.8 cm DOPPLER AV Peak Velocity 187.0 cm/s AV Peak Gradient 14.0 mmHg LVOT Peak Velocity 144.0 cm/s LVOT Peak Gradient 8.3 mmHg AV Area Cont Eq pk 2.4 cm Mitral E Point Velocity 120.0 cm/s Mitral A Point Velocity 95.8 cm/s Mitral E to A Ratio 1.3 LV E' Lateral Velocity 6.9 cm/s Mitral E to LV E' Lateral Ratio 17.5 LV E' Septal Velocity 5.5 cm/s Mitral E to LV E' Septal Ratio 22.0 TR Peak Velocity 351.0 cm/s TR Peak Gradient 49.3 mmHg Right Atrial Pressure 10.0 mmHg Pulmonary Artery Systolic Pressu 59.3 mmHg Right Ventricular Systolic Press 59.3 mmHg PV Peak Velocity 130.0 cm/s PV Peak Gradient 6.8 mmHg FINDINGS LEFT VENTRICLE Normal left ventricular size. Wall thickness is normal. The left ventricular systolic function is normal with an estimated ejection fraction in the range of 55-60%. RIGHT VENTRICLE Normal right ventricular size and systolic function. LEFT ATRIUM The left atrial size is normal. RIGHT ATRIUM The right atrial size is normal. ATRIAL SEPTUM Normal atrial septal thickness without atrial level shunting by limited color doppler interrogation. AORTA The aortic root and proximal ascending aorta are normal in size on limited imaging. MITRAL VALVE Mild mitral valve regurgitation. Mild mitral annular calcification. AORTIC VALVE Trileaflet aortic valve. Aortic valve sclerosis is present. TRICUSPID VALVE There is mild tricuspid valve regurgitation. The estimated pulmonary arterial pressure is 59 mmHg. PULMONARY VALVE No pulmonary valve regurgitation or stenosis. VESSELS The inferior vena cava is normal in size. PERICARDIUM No pericardial effusion. Ave Malagon MD, FACC (Electronically Signed) Final Date:28 February 2018 13:24
--- NOTE | 2018-02-28 20:58 | MB ---
cc: Caleb Glez DPM DATE: 02/28/2018 REASON FOR CONSULTATION: Right foot ulceration. HISTORY OF PRESENT ILLNESS: This is a 68-year-old male who apparently was admitted to the hospital for shortness of breath, dyspnea. The patient was worked up and the patient appears to have a K-level elevation at 5.7 with an EKG showing normal sinus rhythm with peaked T waves. Currently I am seeing the patient bedside. I have been called to evaluate his right foot wound. The patient is known to Dr. Hanna from [facility]. The patient has a history of fifth metatarsal osteomyelitis in which the fifth metatarsal was excised in toto and a wound VAC placed and the patient went through a course of IV antibiotics; however, up until about last week, the patient demanded that the PICC line be removed because he could not afford the IV antibiotics. The patient was on oral medication, uncertain of the name of the medication. He was seen last week by Dr. Hanna, who said everything appeared to be going fine. PAST MEDICAL HISTORY: Positive for poorly controlled diabetes, CAD, status post CABG, hypertension, dyslipidemia, renal transplant, currently on mycophenolate and tacrolimus. PAST SURGICAL HISTORY: CABG, peripheral vascular disease, stenting just recently by Dr. Linares, apparently at the same time the patient had resection of the right fifth metatarsal base. ALLERGIES: PENICILLIN G. OUTPATIENT MEDICATIONS: Reviewed. INPATIENT MEDICATIONS: Reviewed. The patient is receiving clindamycin and vancomycin. PHYSICAL EXAMINATION: VITAL SIGNS: Temperature 96.4, pulse rate 77, respiratory rate 20, blood pressure 162/71. He is saturating 91% on room air. GENERAL: This is an alert and oriented gentleman seen at bedside exhibiting nonlabored respirations. The patient explained no issues with left lower extremity. Right lower extremity was examined. There was noted to be absent multiple toes, chronic swelling and skin changes noted. There is a full-thickness ulcer at the base where the fifth metatarsal would have been. It is obvious that it is not present. The ulcer measured approximately 2.5 x 2.5 cm. It does probe down to the level of the fourth metatarsal base. There is minimal redness. There is no pus. Peripheral wound sutures are noted to be intact. Pulses are palpated with the foot warm. Sensation is significantly decreased to light touch and deep pressure. LABORATORY DATA: White blood cells 7.6, hemoglobin and hematocrit, 10 and 32, platelet count is 125. ESR is 28. Chem-7: Sodium 138, potassium 5.5, chloride 105, CO2 22.4, BUN is 52, creatinine 2.3. Random glucose is 262. C-reactive protein is 12.3. Of note, last blood sugar was 329. Foot x-ray is most consistent with the patient's previous past surgical history with resection of the right fifth metatarsal. Absent second, third, and fifth digits. Radiology makes note of some concern for osteolysis which may correlate with osteomyelitis. MICROBIOLOGY: Gram-positive cocci x1. Wound culture taken by nurse bedside of the right foot. ASSESSMENT AND PLAN: Right foot ulcer, status post fifth metatarsal resection due to osteomyelitis. I called Dr. Hanna from [facility] and reviewed the case with him. He believes that the wound VAC is sufficient and antibiotics should be determined best by infectious disease. The patient was actually seen by Dr. MORRIS. I am unsure of the exact oral medication, but there appears to be some conflicting information regarding what is best for the patient regarding treatment for likely osteomyelitis versus what the patient can afford on an outpatient setting. At this point in time, my recommendation is to see how the patient does clinically, await the culture ancillary studies to determine the extent of osteomyelitis may prove to show false positives. I do think it may be best for the patient to get stabilized from shortness of breath and will send him to doctors who know him and treat him, i.e., Dr. Hanna and Dr. MORRIS, infectious disease. Podiatry service will remain on consult, but I have no surgical plans at this point. It may be beneficial to get infectious disease involved in his care while at [place], I do recommend restarting the wound VAC at least changing Wednesday, Wednesday, Wednesday. KITTY Jay , 06:01 PM , 06:13 PM
[2018-02-28] MEDS: Insulin Detemir Inj 1,000 UNIT/10 ML Vial SQ SCH (22:22)
[2018-03-01 06:53] LABS: Potassium 4.7 meq/L (3.5-5.1)
[2018-03-01 06:56] LABS: Calcium 8.9 mg/dL (8.5-10.1)
[2018-03-01 06:57] LABS: Carbon Dioxide 25.5 meq/L (21.0-32.0)
[2018-03-01] MEDS: Insulin NovoLOG Aspart Correctional Sugar Inj SQ SCH ×4 (07:43→20:52)
--- NOTE | 2018-03-01 11:33 | P.DS ---
Date of admission: 02/27/18 11:34 Primary care physician: Omar Simon Brief History from admission: This patient is a 68-year-old male with a diagnosis of poorly controlled diabetes, coronary artery disease status post CABG, hypertension, dyslipidemia, renal transplant currently on mycophenolate and tacrolimus. The patient also has multiple surgeries to both of his feet from complications of diabetes. He has amputations of all of his toes of the left foot and multiple toes on the right. He currently has a wound VAC in place for a right lateral foot ulceration which she is being treated for by linen grader Dr. Hanna. The patient presented with complaints of shortness of breath that started 2 days ago and has been getting worse. In the emergency department a chest x-ray was done which shows bilateral pulmonary vascular congestion and BNP was elevated. I was then called to evaluate the patient for admission. Past medical history poorly controlled diabetes, coronary artery disease status post CABG, hypertension, dyslipidemia, renal transplant currently on mycophenolate and tacrolimus Past surgical history CABG, peripheral vascular disease status post stent to the right lower extremity, multiple amputations of the toes on the left foot and right foot. Family history significant for coronary artery disease. DS: Medications - Discharge Medications Prescriptions: atorvastatin 40 mg PO HS #30 tab carvedilol [Coreg] 3.125 mg PO BID #60 tab doxycycline hyclate 100 mg PO Q12HR #42 tab DS: Summary Hospital Course: Patient was admitted, started on diuresis with resolution of his shortness of breath however he remained hypoxic and was requiring 2 L. He was also started on antibiotics to help bridge/complete a regimen that he was supposed to have been on since his most recent discharge from a hospitalization for osteomyelitis and peripheral arterial disease in his right foot. Podiatry was consulted and recommended medical management. Infectious disease ultimately recommended oral antibiotic since the patient refused another PICC line regimen to fully address his recent case of osteomyelitis in his right foot was diagnosed at [facility] [place]. Patient had a wet-to-dry dressing placed on his wound since his home wound VAC which was present with him during his hospitalization had a battery which she was instructed to charge upon getting home so that his home care service team would be able to place it back on him once it was discharged. Nephrology had also been consulted due to some transient worsening renal impairment while the patient was kidney transplant impairment. Renal function was improving with IV albumin and patient was medically clear for discharge as well from nephrology standpoint. Patient is to follow-up with his infectious disease doctor and linen grader who were treating him in [facility] [place]. Patient has been maximal benefit from hospitalization and is clinically stable for discharge. - Time Spent with Patient Total time spent providing and/or coordinating discharge services: Less than 30 minutes - Quality: VTE Deep Vein Thrombosis/Pulmonary Embolism Present on Admission: No Exam Vital signs: Vital Signs 02/28/18 12:00 02/28/18 12:10 02/28/18 16:00 Temperature 96.4 F L 96.2 F L Pulse Rate 77 77 62 Respiratory Rate 20 20 Blood Pressure 162/71 H 147/66 H Pulse Oximetry 91 L 96 02/28/18 20:00 02/28/18 20:08 03/01/18 00:00 Temperature 98.6 F 97.5 F L Pulse Rate 75 80 Respiratory Rate 18 18 Blood Pressure 124/58 L 111/55 L Pulse Oximetry 94 L 94 L 94 L 03/01/18 04:00 03/01/18 08:00 03/01/18 08:14 Temperature 96.5 F L 96.2 F L Pulse Rate 70 72 Respiratory Rate 18 Blood Pressure 128/63 129/59 L Pulse Oximetry 18 L 95 93 L Intake & Output 02/28/18 03/01/18 03/01/18 18:59 06:59 18:59 Intake Total 1010 / 1010 220 / 220 100 / 100 Output Total 400 / 400 950 / 950 350 / 350 Balance 610 / 610 -730 / -730 -250 / -250 Weight 59.6 kg Intake: IV 450 / 450 100 / 100 100 / 100 Azactam Inj 1,000 MG In NS Inj 100 / 100 100 ML @ 200 mls/hr IV.SIG Q24H RICKI Rx#:[id number] Vancomycin Inj 1,000 MG In NS 250 / 250 Inj 250 ML @ 250 mls/hr IV.SIG ONCE ONE Rx#:[id number] Flagyl 500 MG Inj 100 ML @ 100 100 / 100 100 / 100 100 / 100 mls/hr IV.SIG Q8H RICKI Rx#: [id number] Oral 560 / 560 120 / 120 Output: Urine 400 / 400 950 / 950 350 / 350 Other: # Bowel Movements 1 Narrative: Clear lungs bilaterally, unlabored breathing On nasal cannula Right foot with wound VAC in place with healing wound, no erythema noted on foot around wound site or remainder of foot Results Procedures completed during hospitalization: . Labs on day of discharge: Labs from last 24 hours 03/01/18 03/01/18 03/01/18 11:28 07:41 06:13 ESR Sodium 141 Potassium 4.7 D Chloride 106 Carbon Dioxide 25.5 Anion Gap 10 BUN 68 H Creatinine 2.50 H Estimated GFR 26 L POC Glucose Pending 107 Random Glucose 169 H Calcium 8.9 C-Reactive Protein 02/28/18 02/28/18 02/28/18 22:14 16:43 11:55 ESR Sodium Potassium Chloride Carbon Dioxide Anion Gap BUN Creatinine Estimated GFR POC Glucose 325 H 329 H 370 H Random Glucose Calcium C-Reactive Protein 02/28/18 02/28/18 05:00 05:00 ESR 28 H Sodium Potassium Chloride Carbon Dioxide Anion Gap BUN Creatinine Estimated GFR POC Glucose Random Glucose Calcium C-Reactive Protein 12.30 H Preliminary micro results at discharge 02/27/18 09:13 Aerobic Blood Culture - Preliminary Blood - Peripheral No growth in 2 days Anaerobic Blood Culture - Preliminary No growth in 2 days 02/27/18 09:08 Aerobic Blood Culture - Preliminary Blood - Peripheral Staphylococcus coag negative Anaerobic Blood Culture - Preliminary Staphylococcus coag negative - Impressions ITS Impressions Chest X-Ray 02/27/18 09:06 CONCLUSION: Left lower lobe atelectasis/consolidation with a small pleural effusion. Small right-sided pleural effusion. Diffuse interstitial thickening consistent with likely severe emphysema. Foot X-Ray 02/28/18 00:00 CONCLUSION: Joint destructive process at the base of the first metatarsal with associated periosteal reaction. Significant deformity of the forefoot following amputations as described. Wound VAC along the dorsal lateral margin of the foot. No other significant abnormality. Discharge Plan - Discharge Disposition Patient Disposition: Disch W/Home Health Service - Discharge Condition Condition: Stable - Discharge Order Discharge Orders: Discharge Order (Routine); Ordered 03/02/18 Ordered By: John Sanchez - Physicians Team Primary Care Provider: Omar Simon Attending Provider: John Sanchez Other Providers: Catie Stanton DPM ; [place],Insurance ; Ramya Martins MD ; Dianne Franco MD
[2018-03-01] MEDS ORDERED: Linezolid 600 MG Tablet PO SCH (13:00)
--- NOTE | 2018-03-01 13:26 | P.DCO ---
- Diagnosis (1) Acute respiratory distress Status: Acute (2) Right foot infection Status: Acute - Physical Therapy Order: Evaluate and treat - Home Health Nursing Order: Wound care and dressing changes - Case Management Consult Case Management Consult-Home Health: Yes - Certification I have seen patient Faina Perry on 03/01/18. My clinical findings support the need for the requested home health care services because: Limited mobility due to disease progression I certify that my clinical findings support that this patient is homebound because: Unsafe to leave home unassisted
--- NOTE | 2018-03-01 14:53 | P.CONNP ---
History of Present Illness Service: Nephrology Consult date: 03/01/18 Requesting Physician: John Sanchez Reason for Consult: Kidney transplant status Primary Care Provider: Omar Simon Chief Complaint: Right foot infection, shortness of breath History of Present Illness: Patient is a 68-year-old white male with history of kidney transplant he states he was discharged from recent surgery on the right foot for osteomyelitis and was at home and was getting increasing shortness of breath with facial swelling and came to the emergency, he was found to have sepsis again and started on antibiotics for the right foot infection and had a drain in place, he has a vacuum dressing, he stated that the he had a PICC line placed for IV antibiotics but he could not afford it and decline was discontinued. His creatinine was 2.2 and has gone up to 2.5 he remains on tacrolimus 1 mg twice daily, mycophenolate 500 mg twice daily. Review of Systems Constitutional: Reports body ache(s) Eyes: Denies blind spots, Denies blurry vision, Denies bulging eyes, Denies change in vision, Denies double vision, Denies discharge, Denies dry eyes, Denies floaters, Denies irritation, Denies itchy eyes, Denies loss of vision, Denies pain, Denies requires corrective lenses, Denies sensitivity to light, Denies other Ears, Nose, Mouth, and Throat: Reports abnormal hearing Cardiovascular: Reports leg swelling, Reports shortness of breath Respiratory: Reports shortness of breath, Reports shortness of breath with activity Gastrointestinal: Denies abdominal pain, Denies belching, Denies black, tarry stools, Denies bloating, Denies bright, red blood in stools, Denies change in bowel habits, Denies constant urge to pass stool, Denies change in stools, Denies coffee ground vomit, Denies constipation, Denies cramping, Denies difficulty swallowing, Denies excessive passing of gas, Denies feeling full early, Denies heartburn, Denies incontinent of stools, Denies loose stools, Denies nausea, Denies pain with swallowing, Denies vomiting, Denies vomiting blood, Denies other Genitourinary: Denies blood in semen, Denies blood in urine, Denies decreased urination, Denies difficulty urinating, Denies difficulty with ejaculations, Denies erectile dysfunction, Denies genital lesions, Denies genital pain, Denies painful urination, Denies side pain, Denies frequent nighttime urination , Denies painful ejaculations, Denies penile discharge, Denies scrotal swelling , Denies testicle lump, Denies testicle pain, Denies urinary frequency, Denies urinary hesitancy, Denies urinary incontinence, Denies urinary urgency, Denies other Musculoskeletal: Reports abnormal walking Skin/Breast: Reports lesions (Ears) Neurologic: Reports sensory deficit, Reports tingling, Reports weakness Endocrine: Denies cold intolerance, Denies excessive sweating, Denies flushing, Denies heat intolerance, Denies increased hunger, Denies increased thirst, Denies increased urination, Denies rapid, pounding, or irregular heartbeat, Denies other Hematologic/Lymphatic: Denies easy bleeding, Denies easy bruising, Denies enlarged lymph nodes, Denies other PMFSH - History History Provided By: Patient - Medical History Medical History: Medical History (Last Reviewed 03/01/18 @ 14:49 by Ramya Martins MD) Diabetes History of renal dialysis History of skin cancer Hx of unilateral nephrectomy - Surgical History Surgical History: Surgical History (Last Reviewed 03/01/18 @ 14:49 by Ramya Martins MD) History of quadruple bypass - Family History Family History: Family History (Last Updated 03/01/18 @ 14:49 by Ramya Martins MD) Other Family history non-contributory - Social History I have reviewed the patient's Social History: Yes - Tobacco History Second Hand Smoke Exposure: No Smoking Status: Former smoker Tobacco Type: Cigarettes - Alcohol History How Often Do You Have a Drink Containing Alcohol: Never - Substance Use History Substance History: No History of Abuse - Immunization History Tetanus Immunization: Unsure Medications and Allergies Active Medications: Active Medications Aspirin (Aspirin Chew) 81 mg PO DAILY [facility] Last Admin: 03/01/18 08:51 Dose: 81 mg Atorvastatin Calcium (Lipitor) 40 mg PO HS [facility] Last Admin: 02/28/18 22:08 Dose: 40 mg Carvedilol (Coreg) 3.125 mg PO BID [facility] Last Admin: 03/01/18 08:51 Dose: 3.125 mg Clopidogrel Bisulfate (Plavix) 75 mg PO DAILY [facility] Last Admin: 03/01/18 08:51 Dose: 75 mg Dextrose (D50w Vial) 50 ml IV.PUSH UNSCH PRN PRN Reason: PER HYPOGLYCEMIA PROTOCOL Glucagon (Glucagon Inj) 1 mg OTHER PRN PRN PRN Reason: for Hypoglycemia Protocol Aztreonam 1,000 mg/ Sodium (Chloride) 100 mls @ 200 mls/hr IV.SIG Q24H [facility] Last Infusion: 03/01/18 12:10 Dose: Infused Albumin Human (Flexbumin 25% Inj) 100 mls @ 60 mls/hr IV.SIG Q100M [facility] Stop: 03/01/18 18:03 Insulin Aspart (Novolog Insulin Correctional Sugar Inj) 0 unit SQ ACHS [facility]; Protocol Last Admin: 03/01/18 11:36 Dose: Not Given Insulin Detemir (Levemir Inj) 10 unit SQ HS [facility] Last Admin: 02/28/18 22:22 Dose: 10 unit Linezolid (Zyvox) 600 mg PO Q12HR [facility] Last Admin: 03/01/18 12:25 Dose: 600 mg Mycophenolate Mofetil (Cellcept) 500 mg PO BID@0600,1800 [facility] Last Admin: 03/01/18 06:18 Dose: 500 mg Pantoprazole Sodium (Protonix) 40 mg PO DAILY [facility] Last Admin: 03/01/18 08:51 Dose: 40 mg Tacrolimus (Prograf) 1 mg PO BID@0600,1800 [facility] Last Admin: 03/01/18 06:18 Dose: 1 mg Allergies Allergy/AdvReac Type Severity Reaction Status Date / Time penicillin G Allergy Severe RASH Verified 02/27/18 12:44 Home Medications Medication Instructions Recorded Confirmed Type aspirin [Aspir-81] 81 mg PO DAILY 02/27/18 02/27/18 History carvedilol 6.25 mg PO BID 02/27/18 02/27/18 History clonidine HCl 0.1 mg PO BID 02/27/18 02/27/18 History clopidogrel 75 mg PO DAILY 02/27/18 02/27/18 History insulin glargine [Lantus U-100 20 unit SUBCUT DAILY 02/27/18 02/27/18 History Insulin] insulin lispro [Humalog U-100 2 sliding scale dose SUBCUT UD 02/27/18 02/27/18 History Insulin] iron 27 mg PO TID 02/27/18 02/27/18 History magnesium 400 mg PO DAILY 02/27/18 02/27/18 History multivitamin [Multiple Vitamins] 1 tab PO DAILY 02/27/18 02/27/18 History mycophenolate mofetil 500 mg PO BID 02/27/18 02/27/18 History pantoprazole 40 mg PO DAILY 02/27/18 02/27/18 History simvastatin 40 mg PO QPM 02/27/18 02/27/18 History tacrolimus 1 mg PO Q12H 02/27/18 02/27/18 History torsemide 20 mg PO BID 02/27/18 02/27/18 History Exam Vital signs: Vital Signs 02/28/18 16:00 02/28/18 20:00 02/28/18 20:08 Temperature 96.2 F L 98.6 F Pulse Rate 62 75 Respiratory Rate 20 18 Blood Pressure 147/66 H 124/58 L Pulse Oximetry 96 94 L 94 L Pulse Oximetry [Resting on Room Air] Pulse Oximetry [Resting with Oxygen] 03/01/18 00:00 03/01/18 04:00 03/01/18 08:00 Temperature 97.5 F L 96.5 F L 96.2 F L Pulse Rate 80 70 72 Respiratory Rate 18 18 Blood Pressure 111/55 L 128/63 129/59 L Pulse Oximetry 94 L 18 L 95 Pulse Oximetry [Resting on Room Air] Pulse Oximetry [Resting with Oxygen] 03/01/18 08:14 03/01/18 11:50 03/01/18 12:00 Temperature 97.2 F L Pulse Rate 74 Respiratory Rate 18 Blood Pressure 140/65 Pulse Oximetry 93 L 96 Pulse Oximetry [Resting on Room Air] 87 L Pulse Oximetry [Resting with Oxygen] 93 L Intake & Output 02/28/18 03/01/18 03/01/18 18:59 06:59 18:59 Intake Total 1010 / 1010 220 / 220 300 / 300 Output Total 400 / 400 950 / 950 350 / 350 Balance 610 / 610 -730 / -730 -50 / -50 Weight 59.6 kg Intake: IV 450 / 450 100 / 100 300 / 300 Azactam Inj 1,000 MG In NS Inj 100 / 100 100 / 100 100 ML @ 200 mls/hr IV.SIG Q24H RICKI Rx#:[id number] Vancomycin Inj 1,000 MG In NS 250 / 250 Inj 250 ML @ 250 mls/hr IV.SIG ONCE ONE Rx#:[id number] Flagyl 500 MG Inj 100 ML @ 100 100 / 100 100 / 100 200 / 200 mls/hr IV.SIG Q8H RICKI Rx#: [id number] Oral 560 / 560 120 / 120 Output: Urine 400 / 400 950 / 950 350 / 350 Other: # Bowel Movements 1 Narrative: GENERAL: Well-nourished, well-developed patient. SKIN: Warm and dry. HEAD: Normocephalic. EYES: No scleral icterus. No injection or drainage. NECK: Supple, trachea midline. No JVD or lymphadenopathy. CARDIOVASCULAR: Regular rate and rhythm without murmurs, gallops, or rubs. RESPIRATORY: Breath sounds equal bilaterally. No accessory muscle use. GASTROINTESTINAL: Abdomen soft, non-tender, nondistended. EXTREMITIES: Right foot vacuum dressing, previous toe amputation, left foot transmetatarsal amputation Review fistula left Forearm NEUROLOGICAL: Awake, alert, and oriented x 3. Non-focal. Results - Lab Results 02/28/18 05:00 03/01/18 06:13 Most recent lab results Calcium 8.9 mg/dL (8.5-10.1) 03/01/18 06:13 Magnesium 2.2 mg/dL (1.5-2.5) 02/28/18 05:00 Assessment and Plan - Assessment (1) Kidney transplant recipient Code(s): Z94.0 - Kidney transplant status Status: Acute (2) Pulmonary edema Code(s): J81.1 - Chronic pulmonary edema Status: Acute (3) Chronic renal insufficiency Code(s): N18.9 - Chronic kidney disease, unspecified Status: Acute (4) Acute hyperkalemia Code(s): E87.5 - Hyperkalemia Status: Acute (5) Right foot infection Code(s): L08.9 - Local infection of the skin and subcutaneous tissue, unspecified Status: Acute - Plan Patient has received diuresis and due to that creatinine is elevated at 2.5, this was held today Lasix 40 mg every 8 hourly was given Increase urine output and decrease in his symptoms were noted Patient is on Zyvox Continue immunosuppression Replace fluids I ordered albumin of 50 g repeat BMP Creatinine declining it is okay to discharge him from nephrology point of view Patient is diagnosed with Staphylococcus epidermidis sepsis treated with Zyvox (2) Pulmonary edema Qualifiers: Chronicity: acute Qualified Code(s): J81.0 - Acute pulmonary edema (3) Chronic renal insufficiency Qualifiers: Chronic kidney disease stage: stage 3 (moderate) Qualified Code(s): N18.3 - Chronic kidney disease, stage 3 (moderate)
--- NOTE | 2018-03-01 15:17 | P.PN ---
Subjective Interval history: Nursing denies any acute deterioration overnight. Patient reiterates his history to me. I received his outside medical records from [facility], he was directly admitted there for peripheral arterial disease surgery given a nonhealing right foot ulcer. He underwent [employer] of right popliteal artery on 02/03. He also underwent cortical debridement of right fifth metatarsal base on 02/04. Surgical cultures grew out MRSA and group B strep. Dr. Teague from [place] recommended daptomycin 300 mg every 24 hours with an anticipated stop date of 03/21. The patient says he had a PICC line placed in the hospital and he was discharged on 02/09 -HOWEVER -he says he did not receive any IV antibiotics after discharge because he could not afford them. He said he followed up with Dr. Teague in the office and and had the PICC line removed at his request since he was unable to afford the antibiotics anyway, and was also switched over to po abx which he still has not picked up due to financial issues. Physical Exam Vital signs: Vital Signs 02/28/18 16:00 02/28/18 20:00 02/28/18 20:08 Temperature 96.2 F L 98.6 F Pulse Rate 62 75 Respiratory Rate 20 18 Blood Pressure 147/66 H 124/58 L Pulse Oximetry 96 94 L 94 L Pulse Oximetry [Resting on Room Air] Pulse Oximetry [Resting with Oxygen] 03/01/18 00:00 03/01/18 04:00 03/01/18 08:00 Temperature 97.5 F L 96.5 F L 96.2 F L Pulse Rate 80 70 72 Respiratory Rate 18 18 Blood Pressure 111/55 L 128/63 129/59 L Pulse Oximetry 94 L 18 L 95 Pulse Oximetry [Resting on Room Air] Pulse Oximetry [Resting with Oxygen] 03/01/18 08:14 03/01/18 11:50 03/01/18 12:00 Temperature 97.2 F L Pulse Rate 74 Respiratory Rate 18 Blood Pressure 140/65 Pulse Oximetry 93 L 96 Pulse Oximetry [Resting on Room Air] 87 L Pulse Oximetry [Resting with Oxygen] 93 L Intake & Output 02/28/18 03/01/18 03/01/18 18:59 06:59 18:59 Intake Total 1010 / 1010 220 / 220 300 / 300 Output Total 400 / 400 950 / 950 350 / 350 Balance 610 / 610 -730 / -730 -50 / -50 Weight 59.6 kg Intake: IV 450 / 450 100 / 100 300 / 300 Azactam Inj 1,000 MG In NS Inj 100 / 100 100 / 100 100 ML @ 200 mls/hr IV.SIG Q24H [facility] Rx#:[id number] Vancomycin Inj 1,000 MG In NS 250 / 250 Inj 250 ML @ 250 mls/hr IV.SIG ONCE ONE Rx#:[id number] Flagyl 500 MG Inj 100 ML @ 100 100 / 100 100 / 100 200 / 200 mls/hr IV.SIG Q8H [facility] Rx#: [id number] Oral 560 / 560 120 / 120 Output: Urine 400 / 400 950 / 950 350 / 350 Other: # Bowel Movements 1 Narrative: Lateral aspect foot wound healing well with wound VAC in place, no obvious erythema or edema noted over foot Clear lungs bilaterally, labored breathing No lower extremity edema Results - Labs CBC & Chem 7: 02/28/18 05:00 03/01/18 17:15 Laboratory Results - last 24 hr 02/28/18 02/28/18 03/01/18 16:43 22:14 06:13 Sodium 141 Potassium 4.7 D Chloride 106 Carbon Dioxide 25.5 Anion Gap 10 BUN 68 H Creatinine 2.50 H Estimated GFR 26 L POC Glucose 329 H 325 H Random Glucose 169 H Calcium 8.9 03/01/18 03/01/18 07:41 11:28 Sodium Potassium Chloride Carbon Dioxide Anion Gap BUN Creatinine Estimated GFR POC Glucose 107 149 H Random Glucose Calcium Microbiology 02/28/18 18:00 Wound - Foot Gram Stain - Final 02/28/18 18:00 Wound - Foot Wound Culture - Preliminary 02/27/18 09:13 Blood - Peripheral Aerobic Blood Culture - Preliminary No growth in 2 days 02/27/18 09:13 Blood - Peripheral Anaerobic Blood Culture - Preliminary No growth in 2 days 02/27/18 09:08 Blood - Peripheral Aerobic Blood Culture - Preliminary Staphylococcus coag negative 02/27/18 09:08 Blood - Peripheral Anaerobic Blood Culture - Preliminary Staphylococcus coag negative Assessment and Plan - Plan This patient is a 68-year-old male admitted with shortness of breath and incomplete course of abx tx for right foot ulceration. Hypoxic respiratory failure -Now reached a chronic state, continue oral diuresis, qualifying for home oxygen based upon 2 L requirement -no longer symptomatic Hyperkalemia -Possibly secondary to renal impairment, improved with IV Lasix Status post kidney transplant2. -Continue tacrolimus and mycophenolate. -Due to worsening renal function, will consult nephrology - bmp in AM Hx of Right foot infx ulceration w/ PAD -Status post popliteal bypass and status post cortical debridement of fifth metatarsal Had received in incomplete course of IV antibiotics based upon patient's narration and outside medical records, was originally prescribed daptomycin IV but did not have any of these medications administered after he was discharged due to financial issues. Was even unable to afford the oral antibiotics to which he was switched over to thus I will consult ID here and see if any further antibiotics are needed. Had an original anticipated stop date of 03/21 of IV daptomycin however he has not received any antibiotics since 02/09. I will stop previous antibiotics of aztreonam and metronidazole and defer antibiotic selection if any at all to ID -Appreciate podiatry input, continue wound VAC for now hx CABG/CAD PAD -Continue aspirin, Plavix, statin. -Patient is thrombocytopenic, no pharmacal therapy for DVT prophylaxis. -No SCDs as the patient currently has wound VAC in place of his right foot and pain in the distal left shins DM - SS w/ accu-checks
[2018-03-01] MEDS: Albumin Human 25% Inj 100 ML IV.SIG SCH ×2 (16:11→17:54)
[2018-03-01] MEDS: Enoxaparin Inj 30 MG/0.3 ML Syringe SQ SCH (16:34)
[2018-03-01 17:39] LABS: Calcium 8.9 mg/dL (8.5-10.1)
[2018-03-01 17:48] LABS: Carbon Dioxide 24.8 meq/L (21.0-32.0)
[2018-03-01] MEDS: Insulin Detemir Inj 1,000 UNIT/10 ML Vial SQ SCH (20:53)
--- NOTE | 2018-03-02 08:25 | P.CONID ---
History of Present Illness Service: Infectious Disease Consult date: 03/02/18 Requesting Physician: John Sanchez Reason for Consult: Foot Osteomyelitis Primary Care Provider: Omar Simon Chief Complaint: Right foot infection, shortness of breath History of Present Illness: 68 /M poorly controlled diabetes-and kidney transplant - has had a ulcer on his rt foot for over two months and had surgery by Dr Hanna a couple of weeks ago and part of the metatarsal was removed.. He was seen by Dr Teague and a PICC was placed and pt was advised Daptomycin but patient says he could not afford it and so had the PICC removed. He was put on PO but patient says that was too expensive too and so he did not take it. He was admitted for dyspnea and chest congestion and was in CHF Rt foot is being managed with wound vac PMFSH - History History Provided By: Patient - Medical History Medical History: Medical History (Last Reviewed 03/01/18 @ 14:49 by Ramya Martins MD) Diabetes History of renal dialysis History of skin cancer Hx of unilateral nephrectomy - Surgical History Surgical History: Surgical History (Last Reviewed 03/01/18 @ 14:49 by Ramya Martins MD) History of quadruple bypass - Family History Family History: Family History (Last Updated 03/01/18 @ 14:49 by Ramya Martins MD) Other Family history non-contributory - Tobacco History Second Hand Smoke Exposure: No Smoking Status: Former smoker Tobacco Type: Cigarettes - Alcohol History How Often Do You Have a Drink Containing Alcohol: Never - Substance Use History Substance History: No History of Abuse - Immunization History Tetanus Immunization: Unsure Medications and Allergies Active Medications: Active Medications Aspirin (Aspirin Chew) 81 mg PO DAILY [facility] Last Admin: 03/01/18 08:51 Dose: 81 mg Atorvastatin Calcium (Lipitor) 40 mg PO HS [facility] Last Admin: 03/01/18 20:52 Dose: 40 mg Carvedilol (Coreg) 3.125 mg PO BID [facility] Last Admin: 03/01/18 20:52 Dose: 3.125 mg Clopidogrel Bisulfate (Plavix) 75 mg PO DAILY [facility] Last Admin: 03/01/18 08:51 Dose: 75 mg Dextrose (D50w Vial) 50 ml IV.PUSH UNSCH PRN PRN Reason: PER HYPOGLYCEMIA PROTOCOL Enoxaparin Sodium (Lovenox Inj) 30 mg SQ Q24H [facility] Last Admin: 03/01/18 16:34 Dose: 30 mg Glucagon (Glucagon Inj) 1 mg OTHER PRN PRN PRN Reason: for Hypoglycemia Protocol Insulin Aspart (Novolog Insulin Correctional Sugar Inj) 0 unit SQ ACHS [facility]; Protocol Last Admin: 03/01/18 20:52 Dose: 9 unit Insulin Detemir (Levemir Inj) 10 unit SQ HS [facility] Last Admin: 03/01/18 20:53 Dose: 10 unit Mycophenolate Mofetil (Cellcept) 500 mg PO BID@0600,1800 [facility] Last Admin: 03/02/18 05:40 Dose: 500 mg Pantoprazole Sodium (Protonix) 40 mg PO DAILY [facility] Last Admin: 03/01/18 08:51 Dose: 40 mg Tacrolimus (Prograf) 1 mg PO BID@0600,1800 [facility] Last Admin: 03/02/18 05:40 Dose: 1 mg Allergies Allergy/AdvReac Type Severity Reaction Status Date / Time penicillin G Allergy Severe RASH Verified 02/27/18 12:44 Home Medications Medication Instructions Recorded Confirmed Type aspirin [Aspir-81] 81 mg PO DAILY 02/27/18 02/27/18 History carvedilol 6.25 mg PO BID 02/27/18 02/27/18 History clonidine HCl 0.1 mg PO BID 02/27/18 02/27/18 History clopidogrel 75 mg PO DAILY 02/27/18 02/27/18 History insulin glargine [Lantus U-100 20 unit SUBCUT DAILY 02/27/18 02/27/18 History Insulin] insulin lispro [Humalog U-100 2 sliding scale dose SUBCUT UD 02/27/18 02/27/18 History Insulin] iron 27 mg PO TID 02/27/18 02/27/18 History magnesium 400 mg PO DAILY 02/27/18 02/27/18 History multivitamin [Multiple Vitamins] 1 tab PO DAILY 02/27/18 02/27/18 History mycophenolate mofetil 500 mg PO BID 02/27/18 02/27/18 History pantoprazole 40 mg PO DAILY 02/27/18 02/27/18 History simvastatin 40 mg PO QPM 02/27/18 02/27/18 History tacrolimus 1 mg PO Q12H 02/27/18 02/27/18 History torsemide 20 mg PO BID 02/27/18 02/27/18 History Exam Vital signs: Vital Signs 03/01/18 11:50 03/01/18 12:00 03/01/18 16:00 Temperature 97.2 F L 96.4 F L Pulse Rate 74 77 Respiratory Rate 18 18 Blood Pressure 140/65 146/65 H Pulse Oximetry 96 96 Pulse Oximetry [Resting on Room Air] 87 L Pulse Oximetry [Resting with Oxygen] 93 L 03/01/18 20:00 03/01/18 20:16 03/02/18 00:00 Temperature 97.6 F 97.5 F L Pulse Rate 73 64 Respiratory Rate 18 18 Blood Pressure 132/84 156/73 H Pulse Oximetry 93 L 97 94 L Pulse Oximetry [Resting on Room Air] Pulse Oximetry [Resting with Oxygen] 03/02/18 04:00 Temperature 97.5 F L Pulse Rate 67 Respiratory Rate 18 Blood Pressure 165/74 H Pulse Oximetry 95 Pulse Oximetry [Resting on Room Air] Pulse Oximetry [Resting with Oxygen] Intake & Output 03/01/18 03/02/18 03/02/18 18:59 06:59 18:59 Intake Total 1100 / 1100 240 / 240 Output Total 850 / 850 425 / 425 Balance 250 / 250 -185 / -185 Weight 82.8 kg Intake: IV 500 / 500 Flexbumin 25% Inj 100 ML @ 60 200 / 200 mls/hr IV.SIG Q100M [facility] Rx#: [id number] Azactam Inj 1,000 MG In NS Inj 100 / 100 100 ML @ 200 mls/hr IV.SIG Q24H [facility] Rx#:[id number] Flagyl 500 MG Inj 100 ML @ 100 200 / 200 mls/hr IV.SIG Q8H [facility] Rx#: [id number] Oral 600 / 600 240 / 240 Output: Urine 850 / 850 425 / 425 Other: Mode Setting Right Foot Continuous # Voids 3 Results - Labs CBC & Chem 7: 02/28/18 05:00 03/01/18 17:15 Labs: Laboratory Results - last 24 hr 03/01/18 03/01/18 03/01/18 11:28 16:30 16:33 Sodium Potassium Chloride Carbon Dioxide Anion Gap BUN Creatinine Estimated GFR POC Glucose 149 H 327 H 342 H Random Glucose Calcium 03/01/18 03/01/18 17:15 20:48 Sodium 138 Potassium 5.0 Chloride 104 Carbon Dioxide 24.8 Anion Gap 9 BUN 64 H Creatinine 2.40 H Estimated GFR 27 L POC Glucose 407 H Random Glucose 398 H D Calcium 8.9 Assessment and Plan (1) Right foot ulcer Status: Acute Code(s): L97.519 - Non-pressure chronic ulcer of other part of right foot with unspecified severity (2) Pulmonary edema Status: Acute Code(s): J81.1 - Chronic pulmonary edema (3) Chronic renal insufficiency Status: Acute Code(s): N18.9 - Chronic kidney disease, unspecified - Plan Patient did have osteomyelitis per discussion with Dr Teague.. Patient refused IV antibiotics and continues to do so. Will put patient on Doxy 100 mg po bid for now Patient should closely follow up with Dr Hanna and Dr Teague. Positive blood culture is a contaminant (2) Pulmonary edema Qualifiers: Chronicity: acute Qualified Code(s): J81.0 - Acute pulmonary edema (3) Chronic renal insufficiency Qualifiers: Chronic kidney disease stage: stage 3 (moderate) Qualified Code(s): N18.3 - Chronic kidney disease, stage 3 (moderate)
[2018-03-02] MEDS: Insulin NovoLOG Aspart Correctional Sugar Inj SQ SCH ×3 (09:33→17:14)
[2018-03-02 12:53] VITALS: O2SAT 96
[2018-03-02] MEDS: Enoxaparin Inj 30 MG/0.3 ML Syringe SQ SCH (17:13)
[2018-03-02 17:29] VITALS: PULSE 75; RESP 18; TEMP 97.2
[2018-03-02 18:07] VITALS: BP 158/88
== END 2018-03-02 18:16 | disposition home health service (06) ==
LOC: PHED 08:48 → PHEDA 11:34 → PH3 12:49 → UNDODISIN 03-02 11:00
PROVIDERS: ADMIT Hospitalist; ATTEND Hospitalist